=== PATIENT | female | born 2000 | race American Indian/Alaskan Native ===

== ENCOUNTER 2021-01-04 04:20 | Emergency (ER) | payer SELFPAY ==
[2021-01-04 05:51] VITALS: BP 134/86
--- NOTE | 2021-01-04 07:35 | Emergency Department Report ---
ED ENT HPI - General Chief complaint: Sore Throat Stated complaint: SORE THROAT Time Seen by Provider: 01/04/21 07:13 Source: patient Mode of arrival: Ambulatory Limitations: No Limitations - History of Present Illness Initial comments: 20-year-old female with a past medical history of asthma presents to the ER today with complaints of sore throat. Patient states that her symptoms started this morning around 1 AM. She reports pain with swallowing. She also reports mild rhinorrhea nasal congestion and body aches. She denies any coughing, wheezing or shortness of breath. She denies any apparent fever or chills. She denies any apparent ill contacts. She denies any drooling or trismus. She has not gotten a COVID-19 vaccine. complaint: sore throat -: Sudden, This morning (1 am ) - Related Data Previous Rx's Medication Instructions Recorded Last Taken Type Clindamycin [Clindamycin CAP] 300 mg PO Q8H #30 cap 01/04/21 Unknown Rx Ibuprofen [Motrin] 600 mg PO Q8H PRN #20 tablet 01/04/21 Unknown Rx predniSONE [Deltasone] 40 mg PO QDAY #10 tab 01/04/21 Unknown Rx Allergies Allergy/AdvReac Type Severity Reaction Status Date / Time cephalexin [From Keflex] Allergy Rash Verified 01/04/21 05:46 mushroom Allergy Swelling Verified 01/04/21 05:46 ED Dental HPI - General Chief complaint: Sore Throat Stated complaint: SORE THROAT Time Seen by Provider: 01/04/21 07:13 Source: patient Mode of arrival: Ambulatory Limitations: No Limitations - Related Data Previous Rx's Medication Instructions Recorded Last Taken Type Clindamycin [Clindamycin CAP] 300 mg PO Q8H #30 cap 01/04/21 Unknown Rx Ibuprofen [Motrin] 600 mg PO Q8H PRN #20 tablet 01/04/21 Unknown Rx predniSONE [Deltasone] 40 mg PO QDAY #10 tab 01/04/21 Unknown Rx Allergies Allergy/AdvReac Type Severity Reaction Status Date / Time cephalexin [From Keflex] Allergy Rash Verified 01/04/21 05:46 mushroom Allergy Swelling Verified 01/04/21 05:46 ED Review of Systems ROS: Stated complaint: SORE THROAT Other details as noted in HPI Comment: All other systems reviewed and negative Constitutional: denies: chills, fever Eyes: denies: eye pain, eye discharge, vision change ENT: throat pain, congestion, other (Rhinorrhea) Respiratory: denies: cough, shortness of breath, SOB with exertion, SOB at rest, wheezing Cardiovascular: denies: chest pain, palpitations, dyspnea on exertion, orthopnea, edema, syncope, paroxysmal nocturnal dyspnea Gastrointestinal: denies: abdominal pain, nausea, vomiting, diarrhea, constipation, hematemesis, melena, hematochezia Genitourinary: denies: urgency, dysuria, frequency, hematuria, discharge, abnormal menses, dyspareunia Musculoskeletal: myalgia. denies: back pain, joint swelling, arthralgia Skin: denies: rash, lesions, change in color, change in hair/nails, pruritus Neurological: denies: headache, weakness, numbness, paresthesias, confusion Psychiatric: denies: anxiety, depression, auditory hallucinations, visual hallucinations, homicidal thoughts, suicidal thoughts ED Past Medical Hx - Social History Smoking Status: Never Smoker Substance Use Type: None - Medications Home Medications: Home Medications Medication Instructions Recorded Confirmed Last Taken Type Clindamycin [Clindamycin CAP] 300 mg PO Q8H #30 cap 01/04/21 Unknown Rx Ibuprofen [Motrin] 600 mg PO Q8H PRN #20 tablet 01/04/21 Unknown Rx predniSONE [Deltasone] 40 mg PO QDAY #10 tab 01/04/21 Unknown Rx ED Physical Exam - General Limitations: No Limitations General appearance: alert, in no apparent distress - Head Head exam: Present: atraumatic, normocephalic, normal inspection - Eye Eye exam: Present: normal appearance, PERRL, EOMI Pupils: Present: normal accommodation - ENT ENT exam: Present: mucous membranes moist - Expanded ENT Exam Expanded Mouth exam: Present: normal external inspection. Absent: drooling, trismus, muffled voice, tongue normal, tongue elevation Throat exam: Positive: normal inspection, tonsillar erythema, tonsillomegaly, tonsillar exudate. Negative: R peritonsillar mass, L peritonsillar mass - Neck Neck exam: Present: normal inspection, full ROM, lymphadenopathy. Absent: meningismus - Respiratory Respiratory exam: Present: normal lung sounds bilaterally. Absent: respiratory distress, rales, rhonchi - Cardiovascular Cardiovascular Exam: Present: regular rate, normal rhythm, normal heart sounds - Neurological Exam Neurological exam: Present: alert, oriented X3, CN II-XII intact, normal gait - Psychiatric Psychiatric exam: Present: normal affect, normal mood - Skin Skin exam: Present: intact ED Course Vital Signs 01/04/21 01/04/21 05:46 05:49 Temperature 99.2 F 99.2 F Pulse Rate 103 H Respiratory 18 Rate Blood Pressure 134/86 [Right] O2 Sat by Pulse 99 Oximetry ED Medical Decision Making - Medical Decision Making Rapid strep is positive. The patient is resting comfortably and is well- appearing and in no acute distress. There is no respiratory distress, no stridor and the mental status is normal. The neurological exam is normal, there is no significant signs of dehydration, and the patient is able to tolerate p.o. fluids. The history, exam, diagnostic testing and the patient current condition does not suggest an infectious process such as meningitis, retropharyngeal abscess, epiglottitis, peritonsillar abscess, Julisa's angina, severe meningitis, , sepsis or any significant pathology warranting further testing, continued ED treatment, admission, consultation or any other evaluation at this time. Discussed rapid strep results, and treatment plan with patient the vital signs have been stable. The patient condition is stable and appropriate for discharge. Critical care attestation.: If time is entered above; I have spent that time in minutes in the direct care of this critically ill patient, excluding procedure time. ED Disposition Clinical Impression: Strep pharyngitis Disposition: 01 HOME / SELF CARE / HOMELESS Is pt being admited?: No Does the pt Need Aspirin: No Condition: Stable Instructions: Strep Throat, Adult Additional Instructions: I recommend that you take the prednisone, and clindamycin as prescribed for your strep throat. You can gargle 2-3 times a day with warm salt water to help with swelling or you can use [id number] throat lozenges to also help with pain. You can also take Tylenol and/or ibuprofen to help with pain. Follow-up closely with your primary care doctor. Return to the ER if your symptoms changes or worsens in any way. Prescriptions: Clindamycin [Clindamycin CAP] 300 mg PO Q8H #30 cap predniSONE [Deltasone] 40 mg PO QDAY #10 tab Ibuprofen [Motrin] 600 mg PO Q8H PRN #20 tablet PRN Reason: Pain Referrals: CARMEL TYSON MD [Staff Physician] - 3-5 Days Forms: Work/School Release Form(ED) Time of Disposition: 08:11
== END 2021-01-04 08:19 | disposition home or self-care (01) ==
LOC: ED 04:20
DX: J02.0 Streptococcal pharyngitis (principal); B95.0 Streptococcus, group A, as the cause of diseases classified elsewhere; Z88.1 Allergy status to other antibiotic agents; Z91.018 Allergy to other foods; Z79.899 Other long term (current) drug therapy
CPT/HCPCS: 87430; 99283

== ENCOUNTER 2021-08-16 20:34 | Emergency (ER) | payer MEDICAID ==
[2021-08-16 22:33] VITALS: BP 104/64
== END 2021-08-17 02:25 | disposition left against medical advice (07) ==
LOC: ED 20:34
DX: J02.9 Acute pharyngitis, unspecified (principal); Z53.21 Procedure and treatment not carried out due to patient leaving prior to being seen by health care provider

== ENCOUNTER 2021-08-30 09:20 | Inpatient (IN) | payer MEDICAID ==
[2021-08-30] MEDS ORDERED: LACTATED RINGERS 1,000 ML IV SCH (10:30)
[2021-08-30 10:51] LABS: Bilirubin,Urine NEG (Negative); Blood,Urine NEG (Negative); Color,Urine Yellow (Yellow); Hyaline Casts,Urine 1 /LPF; Mucus,Urine 2+ /HPF
[2021-08-30] MEDS ORDERED: LACTATED RINGERS 500 ML IV ONE (11:00)
[2021-08-30] MEDS ORDERED: ACETAMINOPHEN 500 MG TAB PO PRN (11:28)
[2021-08-30] MEDS ORDERED: LACTATED RINGERS 500 ML IV SCH (11:30)
[2021-08-30] MEDS ORDERED: NalbUPHINE 10 MG/1 ML INJ IV PRN (11:30)
[2021-08-30] MEDS ORDERED: ePHEDrine SULFATE 50 MG/1 ML INJ IV PRN (11:30)
[2021-08-30] MEDS ORDERED: fentaNYL 100 MCG/2 ML INJ IV PRN (11:30)
[2021-08-30] MEDS ORDERED: DOCUSATE SODIUM 100 MG CAP PO PRN ×2 (13:06→13:16)
[2021-08-30] MEDS ORDERED: SIMETHICONE 80 MG CHEW TAB PO PRN (13:07)
[2021-08-30] MEDS ORDERED: ALUM-MAG HYDROXIDE-SIMETHICONE 200-200-20MG/5ML ORAL LIQD 30 ML PO PRN (13:07)
[2021-08-30] MEDS ORDERED: SODIUM CHLORIDE NASAL SPRAY 44ML NS PRN (13:07)
[2021-08-30] MEDS ORDERED: ONDANSETRON 4 MG/2 ML INJ IV PRN (13:07)
[2021-08-30] MEDS ORDERED: WITCH HAZEL/ GLYCERIN PAD TP PRN (13:07)
[2021-08-30] MEDS ORDERED: ACETAMINOPHEN 325 MG TAB PO PRN (13:16)
--- NOTE | 2021-08-30 13:20 | History and Physical Report ---
History of Present Illness Date of examination: 08/30/21 Date of admission: 08/30/21 Chief complaint: "fever, temperature at home was 102" History of present illness: EDC Confirmation: 12/09/2021 Past History : 2 Term Births: 0 Premature Births: 0 Living Children: 0 Para: 0 Mult. Births: 0 Prev : 0 Aborta: 1 Elect. Ab: 0 Spont. Ab: 1 Ectopics: 0 # 1 Delivery date: 2016 Weeks Gestation: 2 weeks? Delivery type: SAB Comments: D&C, no complications Past Medical History: Reviewed and updated today: Asthma Bronchitis Past Surgical History: Reviewed and updated today: D&C: 2016 Family History Summary: First Degree Blood Relative - Has No Known Family History - Entered On: 06/16/2021 Social History: Patient is single Smoking History: Patient has never smoked. Risk Factors: Smoked Tobacco Use: Never smoker Smokeless Tobacco Use: Never Passive Smoke Exposure: no HIV High Risk Behavior: no Caffeine Use: 0 drinks per day Exercise: yes Times/wk: 3 Type of Exercise: Walking Exercise Counseling: yes Seatbelt Use: preg-clinical mental health counselor % Sun Exposure: rarely Family History Risk Factors: Family History of DC in 1 Female Relative Age < 65: no Family History of DC in 1 Male Relative Age < 55: no No Dietary Counseling Reason: pn yes Alcohol Use: yes Drug Use: no Past Medical History Anesthesia Complications: negative Anemia: negative Autoimmune Disorder: negative Bleeding Disorder: negative Blood Transfusions: negative Breast Disease: negative Diabetes: negative Heart Disease: negative Hypertension: negative Hepatitis/Liver Disease: negative Kidney Disease/UTI: negative Neurologic/Epilepsy/Migraines: negative Phlebitis/Varicosities: negative Psychiatric: negative Pulmonary Disease/Asthma: negative Thyroid Disease: negative Hospitalizations: negative Surgery (Non-manager produce): D&C: 2016 Abnormal PAP: negative MYRTLE Exposure: negative Infertility: negative Uterine Anomaly: negative Uterine Surgery (not C/S): negative Other Gynecologic Problems: negative Social Hx: Patient is single Smoking History: Patient has never smoked. Infection History Hx of STD: none HIV Risk Eval: no Hepatitis B Risk Eval: low risk Personal hx. of genital herpes: no Partner hx. of genital herpes: no Rash, Viral, or Febrile illness since last LMP? no Varicella/Chicken Pox Status: Unknown TB Risk: no Genetic History Congenital Heart Defect: Mom: no Dad: no Elpidio Disease: Mom: no Dad: no Thalassemia Mom: no Dad: no Neural Tube Defect Mom: no Dad: no Down's Syndrome Mom: no Dad: no [place]s Mom: no Dad: no Sickle Cell Disease/Trait Mom: no Dad: no Hemophilia Mom: no Dad: no Muscular Dystrophy Mom: no Dad: no Cystic Fibrosis Mom: no Dad: no [place] Chorea Mom: no Dad: no Mental Retardation Mom: no Dad: no Fragile X Mom: no Dad: no Other Genetic/Chromosomal Disorder Mom: no Dad: no Child w/other defect Mom: no Dad: no Enviromental Exposures Xray Exposure: no Medication, drug, or alcohol use since LMP: no Chemical/Other Exposure: no Exposure to Cat Liter: no Hx of Parvovirus (Fifth Disease): no Occupational Exposure to Children: none Active Medications (reviewed today): None Current Allergies (reviewed today): CEPHALEXIN (CEPHALEXIN TABS) (Critical) Past History Past Medical History: asthma, other (see HPI) Past Surgical History: D&C, other (see HPI) INSPECTOR EXHAUST EMISSIONS History: other (see HPI) Family/Genetic History: none, other (see HPI) Social history: no significant social history, other (see HPI) - Obstetrical History Expected Date of Delivery: 12/09/21 Actual Gestation: 25 Week(s) 4 Day(s) : 2 Para: 0 Hx # Term Pregnancies: 0 Number of Pregnancies: 0 Spontaneous Abortions: 1 Induced : 0 Number of Living Children: 0 Medications and Allergies Allergies Allergy/AdvReac Type Severity Reaction Status Date / Time cephalexin [From Keflex] Allergy Rash Verified 01/04/21 05:46 mushroom Allergy Swelling Verified 01/04/21 05:46 Home Medications Medication Instructions Recorded Confirmed Last Taken Type Clindamycin [Clindamycin CAP] 300 mg PO Q8H #30 cap 01/04/21 Unknown Rx Ibuprofen [Motrin] 600 mg PO Q8H PRN #20 tablet 01/04/21 Unknown Rx predniSONE [Deltasone] 40 mg PO QDAY #10 tab 01/04/21 Unknown Rx Active Meds: Active Medications Acetaminophen (Acetaminophen 500 Mg Tab) 1,000 mg PO Q6H PRN PRN Reason: Fever >101 Last Admin: 08/30/21 12:10 Dose: 1,000 mg Lactated Ringer's (Lactated Ringers) 1,000 mls @ 125 mls/hr IV DIRECT JOANNE Review of Systems All systems: negative Constitutional: fever Ears, nose, mouth and throat: nasal congestion, nasal discharge (clear nasal discharge), sore throat Respiratory: cough Gastrointestinal: nausea, vomiting - Vital Signs Vital signs: Vital Signs Pulse Pulse Ox 131 H 96 08/30/21 09:55 08/30/21 09:55 Temp Pulse Resp BP Pulse Ox 103.3 F H 119 H 20 117/86 94 08/30/21 10:04 08/30/21 13:04 08/30/21 12:10 08/30/21 12:43 08/30/21 13:04 - Physical Exam Lungs: Positive: Normal air movement Abdomen: Positive: normal appearance, soft. Negative: distention, tenderness, guarding Uterus: Positive: normal size, normal contour, other (gravid) Extremities: Positive: normal - Obstetrical FHR: category 2 Uterine Contraction Monitor Mode: External Uterine Contraction Pattern: Absent Uterine Tone Measurement Phase: Resting Results Abnormal lab results 08/30/21 Range/Units 10:08 U Epithel Cells (Auto) 16.0 H (0-13.0) /HPF All other labs normal. Tests: (1) Profile I ([id number]) Order Note: Clinical Information: SRC:UR HBsAg Screen Negative Negative *1 RPR Non Reactive Non Reactive *2 Rubella Antibodies, IgG 1.08 index Immune >0.99 *3 Non-immune <0.90 Equivocal 0.90 - 0.99 Immune >0.99 ABO Grouping A *4 Rh Factor Positive *5 Please note: Prior records for this patient's ABO / Rh type are not available for additional verification. Antibody Screen Negative Negative *6 WBC 10.8 x10E3/uL 3.4-10.8 *7 RBC 4.25 x10E6/uL 3.77-5.28 *8 Hemoglobin 11.3 g/dL 11.1-15.9 *9 Hematocrit 35.9 % 34.0-46.6 *10 MCV 85 fL 79-97 *11 MCH 26.6 pg 26.6-33.0 *12 MCHC 31.5 g/dL 31.5-35.7 *13 RDW 13.8 % 11.7-15.4 *14 Platelets 363 x10E3/uL 150-450 *15 Neutrophils 78 % Not Estab. *16 Lymphs 13 % Not Estab. *17 Monocytes 6 % Not Estab. *18 Eos 2 % Not Estab. *19 Basos 0 % Not Estab. *20 ! Immature Cells <No Reported Value> *21 Neutrophils (Absolute) [H] 8.4 x10E3/uL 1.4-7.0 *22 Lymphs (Absolute) 1.4 x10E3/uL 0.7-3.1 *23 Monocytes(Absolute) 0.7 x10E3/uL 0.1-0.9 *24 Eos (Absolute) 0.3 x10E3/uL 0.0-0.4 *25 Baso (Absolute) 0.0 x10E3/uL 0.0-0.2 *26 ! Immature Granulocytes 1 % Not Estab. *27 ! Immature Grans (Abs) 0.1 x10E3/uL 0.0-0.1 *28 ! NRBC <No Reported Value> *29 Hematology Comments: <No Reported Value> *30 Tests: (2) AFP Tetra ([id number]) ! Results Report *31 ! Test Results: *Screen Negative* *32 ! Gest. Age on Collection Date 15.6 WEEKS *33 ! Gestat. Age Based On Ultrasound *34 15.6 on 06/28/2021 ! M[age]UE [age] *35 ! Race Black *36 ! Weight 196 lbs *37 ! Insulin Dep Diabetes No *38 ! Multiple Gestation No *39 ! AFP Value 31.5 ng/mL *40 ! AFP MoM 1.06 *41 ! hCG Value 83463 mIU/mL *42 ! hCG MoM 1.20 *43 ! uE3 Value 0.89 ng/mL *44 ! uE3 MoM 1.10 *45 ! LULU Value 94.39 pg/mL *46 ! LULU MoM 0.67 *47 ! OSBR [place] 1 [place] [address] *48 ! DSR (Second Trimester) 1 [place] [address] *49 ! DSR (By Age) 1 IN 1155 *50 ! T18 Risk Not increased *51 ! T18 (By Age) 1:4499 *52 ! Interpretation NL42 *53 Interpretation: Screen Negative This result is screen negative for OSB, Down Syndrome and Trisomy 18. The AFP MoM and patient specific risks calculated are based on the gestational age and the clinical information provided. This test can identify up to 80% of open neural tube defects. Closed neural tube defects and some open defects may not be detected by this test. The combination of maternal age, AFP, hCG, uE3, and LULU identifies 75-80% of Down Syndrome. The combination of maternal age, AFP, hCG and uE3 identifies 60% of Trisomy 18 pregnancies. The [employer] recommends amniocentesis be offered to women age 35 and older. Recalculations are not recommended when gestational dating by LMP and ultrasound are within 10 days. ! Comments: [facility] *54 Naomie Guerra, Ph.D., [facility] Director References: Available Upon Request. Multiples Of Median Cutoffs Abbreviation Definitions For AFP Elevations IDD- Insulin Dep Diabetes Morrell 2.5 Black 2.8 OSBR- Open Spina Bifida IDD 2.0 Twins 4.5 Risk DSR Cutoff 1:270 DSR- Down Syndrome Risk T18 Cutoff 1:100 T18- Trisomy 18 Down Syndrome and Trisomy 18 screening are considered Investigational For further inquiries contact [employer] at [phone]. Tests: (3) HB Solu + Rflx Fra ([id number]) Hemoglobin (Hgb) Solubility Negative Negative *55 Tests: (4) Toxoplasma gondii Ab, IgG ([id number]) ! Toxoplasma gondii Ab,IgG <3.0 IU/mL 0.0-7.1 *56 Negative <7.2 Equivocal 7.2 - 8.7 Positive >8.7 Tests: (5) HIV Ab/p24 Ag with Reflex ([id number]) HIV Ab/p24 Ag Screen Non Reactive Non Reactive *57 HIV Negative HIV-1/HIV-2 antibodies and HIV-1 p24 antigen were NOT detected. There is no laboratory evidence of HIV infection. Tests: (6) Varicella-Zoster V Ab, IgG ([id number]) ! Varicella Zoster IgG [L] <135 index Immune >165 *58 Negative <135 Equivocal 135 - 165 Positive >165 A positive result generally indicates exposure to the pathogen or administration of specific immunoglobulins, but it is not indication of active infection or stage of disease. Tests: (7) HCV Antibody reflex to NICKY ([id number]) HCV Ab <0.1 s/co ratio 0.0-0.9 *59 Assessment and Plan @25.4wks presents to triage with c/o fever, vomiting, cough, sore throat, runny nose, and body aches. VS reviewed and pt febrile and tachycardic. FHT's with tachycardia noted. Continuous monitoring, blood cultures, CBC, CMP, IV fluid bolus, and Tylenol orders given. Dr. Javier made aware and orders received for admission. Pt reports symptoms began yesterday. [place] suspicious of exposure to flu. Pt states, "my best friend has it right now". Pt denies known exposure to illness. Pt reports positive movement. Denies contractions, LOF, and VB. Phone call to RN received from lab at time of exam and notified COVID test result negative. Isolation precautions advised for fever of unknown origin. Admission POC d/w pt. Questions encouraged and answered. Pt verbalizes understanding and agrees to POC. Pt reports severe allergy to Keflex. Dr. Javier made aware. No orders for antibiotics received at this time. - Patient Problems (1) 25 weeks gestation of Current Visit: Yes Status: Acute Plan to address problem: continuous efm and toco monitoring (2) Fever in adult Current Visit: Yes Status: Acute Plan to address problem: blood cultures and urine culture ordered CBC and CMP ordered ID consult ordered covid test negative 08/30/21 flu test ordered
[2021-08-30 13:40] LABS: Basophils % (Auto) 0.2 % (0.0-1.8); Eosinophils % (Auto) 0.1 % (0.0-4.3); Hematocrit 31.4 % (30.3-42.9); Hemoglobin 10.3 gm/dl (10.1-14.3); Lymphocytes # (Auto) 0.3 K/mm3 (1.2-5.4); Lymphocytes % (Auto) 3.7 % (13.4-35.0); Mean Corpuscular HGB Conc 33 % (30-34); Mean Corpuscular Volume 83 fl (79-97); Monocytes # (Auto) 0.9 K/mm3 (0.0-0.8); Monocytes % (Auto) 10.8 % (0.0-7.3); Platelet Count 275 K/mm3 (140-440); Red Blood Count 3.79 M/mm3 (3.65-5.03); Red Cell Distribution Width 13.7 % (13.2-15.2)
[2021-08-30] MEDS: guaiFENesin DM 200/20 MG ORAL LIQD 10 ML PO PRN ×2 (15:51→23:08)
[2021-08-30] MEDS: PSEUDOEPHEDRINE 30 MG TAB PO PRN (15:51)
[2021-08-30] MEDS: OSELTAMIVIR 75 MG CAP PO SCH ×2 (15:52→22:18)
[2021-08-30 16:18] LABS: Alanine Aminotransferase 14 units/L (7-56); Albumin 3.8 g/dL (3.9-5); Blood Urea Nitrogen 8 mg/dL (7-17); Calcium 8.8 mg/dL (8.4-10.2); Hemolysis Index 3
[2021-08-30 16:19] LABS: BUN/Creatinine Ratio 13
[2021-08-30] MEDS: LACTATED RINGERS 1,000 ML IV SCH (23:11)
[2021-08-31] MEDS: LACTATED RINGERS 1,000 ML IV SCH ×2 (07:53→23:05)
--- NOTE | 2021-08-31 08:16 | Progress Note ---
Assessment and Plan patient reports feeling better today; c/o nonproductive cough, denies ctx, leaking or vag bleeding. pt reports active FM. Tmax 103.1 08/31 @ 1300 P: FHT q8hrs if temp <100.4 CXR continue tamiflu BC x 2 and UC in progress ISS ID consult ordered - Patient Problems (1) Flu Current Visit: Yes Status: Acute (2) 25 weeks gestation of Current Visit: Yes Status: Acute Subjective - Subjective Date of service: 08/31/21 Principal diagnosis: IUP @ 25wks; flu Patient reports: movement normal, other (dry cough), no new complaints, no loss of fluid, no vaginal bleeding, no contractions Objective - Vital Signs Vital Signs: Vital Signs - 12hr 08/30/21 08/30/21 08/30/21 20:13 20:18 20:23 Temperature Pulse Rate 96 H 93 H 100 H Respiratory Rate Blood Pressure O2 Sat by Pulse 96 98 96 Oximetry 08/30/21 08/30/21 08/30/21 20:28 20:32 20:33 Temperature Pulse Rate 101 H 105 H 99 H Respiratory Rate Blood Pressure O2 Sat by Pulse 96 94 94 Oximetry 08/30/21 08/30/21 08/30/21 20:38 20:40 20:43 Temperature Pulse Rate 95 H 89 101 H Respiratory Rate Blood Pressure O2 Sat by Pulse 94 94 92 Oximetry 08/30/21 08/30/21 08/30/21 20:48 20:53 20:55 Temperature Pulse Rate 95 H 100 H 113 H Respiratory Rate Blood Pressure O2 Sat by Pulse 94 93 94 Oximetry 08/30/21 08/30/21 08/30/21 20:58 21:00 21:03 Temperature Pulse Rate 105 H 106 H 93 H Respiratory Rate Blood Pressure 112/59 O2 Sat by Pulse 94 93 96 Oximetry 08/30/21 08/30/21 08/30/21 21:08 21:13 21:14 Temperature Pulse Rate 105 H 100 H 101 H Respiratory Rate Blood Pressure O2 Sat by Pulse 94 95 94 Oximetry 08/30/21 08/30/21 08/30/21 21:18 21:23 21:28 Temperature Pulse Rate 101 H 111 H 99 H Respiratory Rate Blood Pressure O2 Sat by Pulse 96 96 95 Oximetry 08/30/21 08/30/21 08/30/21 21:30 21:33 21:36 Temperature Pulse Rate 109 H 104 H 96 H Respiratory Rate Blood Pressure O2 Sat by Pulse 94 95 94 Oximetry 08/30/21 08/30/21 08/30/21 21:38 21:43 21:48 Temperature Pulse Rate 102 H 99 H 98 H Respiratory Rate Blood Pressure O2 Sat by Pulse 94 94 96 Oximetry 08/30/21 08/30/21 08/30/21 21:53 21:56 21:58 Temperature Pulse Rate 102 H 102 H 101 H Respiratory Rate Blood Pressure O2 Sat by Pulse 95 94 95 Oximetry 08/30/21 08/30/21 08/30/21 22:03 22:08 22:09 Temperature Pulse Rate 100 H 99 H 101 H Respiratory Rate Blood Pressure O2 Sat by Pulse 95 95 94 Oximetry 08/30/21 08/30/21 08/30/21 22:19 22:20 22:24 Temperature Pulse Rate 105 H 102 H 104 H Respiratory Rate Blood Pressure 133/59 O2 Sat by Pulse 99 96 Oximetry 08/30/21 08/30/21 08/30/21 22:29 22:34 22:39 Temperature Pulse Rate 107 H 107 H 104 H Respiratory Rate Blood Pressure O2 Sat by Pulse 98 97 97 Oximetry 08/30/21 08/30/21 08/30/21 22:44 22:49 22:54 Temperature Pulse Rate 96 H 100 H 103 H Respiratory Rate Blood Pressure O2 Sat by Pulse 97 98 97 Oximetry 08/30/21 08/30/21 08/30/21 22:59 23:04 23:09 Temperature Pulse Rate 102 H 108 H 109 H Respiratory Rate Blood Pressure O2 Sat by Pulse 97 95 99 Oximetry 08/30/21 08/30/21 08/30/21 23:10 23:14 23:19 Temperature 99.1 F Pulse Rate 103 H 122 H Respiratory 20 Rate Blood Pressure O2 Sat by Pulse 99 99 97 Oximetry 08/30/21 08/30/21 08/30/21 23:24 23:29 23:34 Temperature Pulse Rate 113 H 110 H 109 H Respiratory Rate Blood Pressure O2 Sat by Pulse 96 95 92 Oximetry 08/30/21 08/30/21 08/30/21 23:39 23:42 23:44 Temperature Pulse Rate 108 H 103 H 110 H Respiratory Rate Blood Pressure O2 Sat by Pulse 93 94 95 Oximetry 0508/30/21 08/30/21 23:47 23:49 23:54 Temperature Pulse Rate 105 H 109 H 106 H Respiratory Rate Blood Pressure O2 Sat by Pulse 94 94 95 Oximetry 08/30/21 08/30/21 08/31/21 23:55 23:59 00:00 Temperature Pulse Rate 109 H 111 H 110 H Respiratory Rate Blood Pressure O2 Sat by Pulse 94 94 94 Oximetry 08/31/21 08/31/21 08/31/21 00:04 00:06 00:08 Temperature Pulse Rate 109 H 111 H 108 H Respiratory Rate Blood Pressure 105/53 O2 Sat by Pulse 96 93 Oximetry 08/31/21 08/31/21 08/31/21 00:09 00:14 00:19 Temperature Pulse Rate 101 H 115 H 103 H Respiratory Rate Blood Pressure O2 Sat by Pulse 94 96 95 Oximetry 08/31/21 08/31/21 08/31/21 00:21 00:24 00:27 Temperature Pulse Rate 106 H 108 H 108 H Respiratory Rate Blood Pressure O2 Sat by Pulse 94 96 94 Oximetry 08/31/21 08/31/21 08/31/21 00:29 00:34 00:39 Temperature Pulse Rate 107 H 106 H 110 H Respiratory Rate Blood Pressure O2 Sat by Pulse 96 96 97 Oximetry 08/31/21 08/31/21 08/31/21 00:44 00:49 00:52 Temperature Pulse Rate 103 H 106 H 109 H Respiratory Rate Blood Pressure O2 Sat by Pulse 95 96 93 Oximetry 08/31/21 08/31/21 08/31/21 00:54 00:59 01:04 Temperature Pulse Rate 110 H 112 H 98 H Respiratory Rate Blood Pressure O2 Sat by Pulse 96 94 97 Oximetry 08/31/21 08/31/21 08/31/21 01:06 01:09 01:10 Temperature Pulse Rate 107 H 104 H 109 H Respiratory Rate Blood Pressure 129/70 O2 Sat by Pulse 95 94 Oximetry 08/31/21 08/31/21 08/31/21 01:14 01:17 01:19 Temperature Pulse Rate 111 H 111 H 113 H Respiratory Rate Blood Pressure O2 Sat by Pulse 94 94 97 Oximetry 08/31/21 08/31/21 08/31/21 01:24 01:25 01:29 Temperature Pulse Rate 119 H 117 H 120 H Respiratory Rate Blood Pressure O2 Sat by Pulse 95 94 97 Oximetry 08/31/21 08/31/21 08/31/21 01:30 01:34 01:39 Temperature 98.3 F Pulse Rate 120 H 122 H Respiratory 20 Rate Blood Pressure O2 Sat by Pulse 97 94 96 Oximetry 08/31/21 08/31/21 08/31/21 01:44 01:46 01:49 Temperature Pulse Rate 105 H 108 H 110 H Respiratory Rate Blood Pressure O2 Sat by Pulse 94 94 94 Oximetry 08/31/21 08/31/21 08/31/21 01:51 01:54 01:59 Temperature Pulse Rate 109 H 106 H 106 H Respiratory Rate Blood Pressure O2 Sat by Pulse 94 94 96 Oximetry 08/31/21 08/31/21 08/31/21 02:04 02:09 02:12 Temperature Pulse Rate 105 H 111 H 104 H Respiratory Rate Blood Pressure O2 Sat by Pulse 95 96 94 Oximetry 08/31/21 08/31/21 08/31/21 02:14 02:17 02:19 Temperature Pulse Rate 105 H 105 H 103 H Respiratory Rate Blood Pressure O2 Sat by Pulse 95 94 94 Oximetry 08/31/21 08/31/21 08/31/21 02:24 02:25 02:29 Temperature Pulse Rate 108 H 102 H 106 H Respiratory Rate Blood Pressure O2 Sat by Pulse 95 94 95 Oximetry 08/31/21 08/31/21 08/31/21 02:33 02:34 02:49 Temperature Pulse Rate 117 H 113 H 109 H Respiratory Rate Blood Pressure O2 Sat by Pulse 94 98 97 Oximetry 08/31/21 08/31/21 08/31/21 02:54 02:55 02:59 Temperature Pulse Rate 114 H 107 H 118 H Respiratory Rate Blood Pressure O2 Sat by Pulse 96 94 95 Oximetry 08/31/21 08/31/21 08/31/21 03:00 03:04 03:05 Temperature Pulse Rate 111 H 112 H 101 H Respiratory Rate Blood Pressure 114/63 O2 Sat by Pulse 94 97 Oximetry 08/31/21 08/31/21 08/31/21 03:09 03:14 03:19 Temperature Pulse Rate 101 H 98 H 101 H Respiratory Rate Blood Pressure O2 Sat by Pulse 96 97 97 Oximetry 08/31/21 08/31/21 08/31/21 03:24 03:29 03:30 Temperature Pulse Rate 98 H 102 H 103 H Respiratory Rate Blood Pressure O2 Sat by Pulse 97 94 94 Oximetry 08/31/21 08/31/21 08/31/21 03:34 03:39 03:44 Temperature Pulse Rate 106 H 105 H 101 H Respiratory Rate Blood Pressure O2 Sat by Pulse 96 95 95 Oximetry 08/31/21 08/31/21 08/31/21 03:49 03:54 03:55 Temperature Pulse Rate 95 H 104 H 121 H Respiratory Rate Blood Pressure O2 Sat by Pulse 94 96 94 Oximetry 08/31/21 08/31/21 08/31/21 03:59 04:02 04:04 Temperature Pulse Rate 96 H 100 H 100 H Respiratory Rate Blood Pressure O2 Sat by Pulse 96 94 95 Oximetry 08/31/21 08/31/21 08/31/21 04:07 04:09 04:12 Temperature Pulse Rate 99 H 104 H 99 H Respiratory Rate Blood Pressure 102/58 O2 Sat by Pulse 94 94 Oximetry 08/31/21 08/31/21 08/31/21 04:14 04:19 04:20 Temperature Pulse Rate 104 H 104 H 101 H Respiratory Rate Blood Pressure O2 Sat by Pulse 94 95 94 Oximetry 08/31/21 08/31/21 08/31/21 04:24 04:29 04:34 Temperature Pulse Rate 101 H 105 H 101 H Respiratory Rate Blood Pressure O2 Sat by Pulse 96 96 94 Oximetry 08/31/21 08/31/21 08/31/21 04:39 04:40 04:44 Temperature 98.9 F Pulse Rate 111 H 100 H Respiratory 20 Rate Blood Pressure O2 Sat by Pulse 96 96 93 Oximetry 08/31/21 08/31/21 08/31/21 04:47 04:49 04:54 Temperature Pulse Rate 104 H 104 H 99 H Respiratory Rate Blood Pressure O2 Sat by Pulse 94 93 96 Oximetry 08/31/21 08/31/21 08/31/21 04:55 04:59 05:04 Temperature Pulse Rate 101 H 103 H 101 H Respiratory Rate Blood Pressure O2 Sat by Pulse 94 95 95 Oximetry 08/31/21 08/31/21 08/31/21 05:05 05:09 05:11 Temperature Pulse Rate 102 H 103 H 99 H Respiratory Rate Blood Pressure 92/51 O2 Sat by Pulse 94 96 94 Oximetry 08/31/21 08/31/21 08/31/21 05:14 05:16 05:19 Temperature Pulse Rate 101 H 101 H 105 H Respiratory Rate Blood Pressure O2 Sat by Pulse 95 94 95 Oximetry 08/31/21 08/31/21 08/31/21 05:21 05:24 05:27 Temperature Pulse Rate 99 H 96 H 95 H Respiratory Rate Blood Pressure O2 Sat by Pulse 93 90 90 Oximetry 08/31/21 08/31/21 08/31/21 05:29 05:34 05:39 Temperature Pulse Rate 101 H 100 H 100 H Respiratory Rate Blood Pressure O2 Sat by Pulse 89 92 91 Oximetry 08/31/21 08/31/21 08/31/21 05:44 05:49 05:54 Temperature Pulse Rate 103 H 99 H 99 H Respiratory Rate Blood Pressure O2 Sat by Pulse 92 93 92 Oximetry 08/31/21 08/31/21 08/31/21 05:59 06:04 06:07 Temperature Pulse Rate 113 H 107 H 115 H Respiratory Rate Blood Pressure 96/53 O2 Sat by Pulse 96 92 Oximetry 08/31/21 08/31/21 08/31/21 06:09 06:14 06:17 Temperature Pulse Rate 106 H 104 H 116 H Respiratory Rate Blood Pressure O2 Sat by Pulse 93 92 91 Oximetry 08/31/21 08/31/21 08/31/21 06:19 06:23 06:24 Temperature Pulse Rate 111 H 118 H 114 H Respiratory Rate Blood Pressure O2 Sat by Pulse 98 94 97 Oximetry 08/31/21 08/31/21 08/31/21 06:29 06:40 06:43 Temperature Pulse Rate 118 H 115 H 106 H Respiratory Rate Blood Pressure O2 Sat by Pulse 96 96 94 Oximetry 08/31/21 08/31/21 08/31/21 06:45 06:49 06:50 Temperature Pulse Rate 117 H 107 H 111 H Respiratory Rate Blood Pressure O2 Sat by Pulse 95 94 94 Oximetry 08/31/21 08/31/21 08/31/21 06:54 06:55 07:00 Temperature Pulse Rate 106 H 114 H 107 H Respiratory Rate Blood Pressure O2 Sat by Pulse 94 98 97 Oximetry 08/31/21 08/31/21 08/31/21 07:01 07:05 07:07 Temperature Pulse Rate 110 H 103 H 108 H Respiratory Rate Blood Pressure 101/58 O2 Sat by Pulse 93 95 92 Oximetry 0508/31/21 08/31/21 07:10 07:13 07:15 Temperature Pulse Rate 109 H 108 H 111 H Respiratory Rate Blood Pressure O2 Sat by Pulse 96 94 98 Oximetry 08/31/21 08/31/21 08/31/21 07:20 07:22 07:25 Temperature Pulse Rate 108 H 107 H 109 H Respiratory Rate Blood Pressure 119/65 O2 Sat by Pulse 97 96 Oximetry 08/31/21 08/31/21 08/31/21 07:30 07:35 07:40 Temperature Pulse Rate 110 H 106 H 106 H Respiratory Rate Blood Pressure O2 Sat by Pulse 96 98 98 Oximetry 08/31/21 08/31/21 08/31/21 07:45 07:48 07:50 Temperature 99.8 F H Pulse Rate 103 H 104 H Respiratory Rate Blood Pressure O2 Sat by Pulse 97 96 Oximetry 08/31/21 08/31/21 08/31/21 07:55 08:00 08:05 Temperature Pulse Rate 102 H 102 H 114 H Respiratory Rate Blood Pressure O2 Sat by Pulse 95 95 98 Oximetry 08/31/21 08:07 Temperature Pulse Rate 107 H Respiratory Rate Blood Pressure 94/47 O2 Sat by Pulse Oximetry - Exam Cardiovascular: Regular rate Lungs: Normal air movement Abdomen: Present: normal appearance, soft Uterus: Present: normal FHR: category 1 Uterine Contraction Monitor Mode: External Uterine Contraction Pattern: Absent Uterine Tone Measurement Phase: Resting Extremities: normal - Labs Labs: Abnormal Labs 08/30/21 08/30/21 08/30/21 10:08 12:00 12:00 MCH 27 L Lymph % (Auto) 3.7 L Gibson % (Auto) 10.8 H Lymph # (Auto) 0.3 L Gibson # (Auto) 0.9 H Seg Neutrophils % 85.2 H Sodium 133 L Potassium 3.2 L Carbon Dioxide 21 L Albumin 3.8 L U Epithel Cells (Auto) 16.0 H Influenza A (RT-PCR) 08/30/21 13:40 MCH Lymph % (Auto) Gibson % (Auto) Lymph # (Auto) Gibson # (Auto) Seg Neutrophils % Sodium Potassium Carbon Dioxide Albumin U Epithel Cells (Auto) Influenza A (RT-PCR) Positive A Laboratory Results - last 24 hr 08/30/21 08/30/21 08/30/21 10:08 11:40 12:00 WBC 8.5 RBC 3.79 Hgb 10.3 Hct 31.4 MCV 83 MCH 27 L MCHC 33 RDW 13.7 Plt Count 275 Lymph % (Auto) 3.7 L Gibson % (Auto) 10.8 H Eos % (Auto) 0.1 Baso % (Auto) 0.2 Lymph # (Auto) 0.3 L Gibson # (Auto) 0.9 H Eos # (Auto) 0.0 Baso # (Auto) 0.0 Seg Neutrophils % 85.2 H Seg Neutrophils # 7.3 Sodium Potassium Chloride Carbon Dioxide Anion Gap BUN Creatinine Estimated GFR BUN/Creatinine Ratio Glucose Calcium Total Bilirubin AST ALT Alkaline Phosphatase Total Protein Albumin Albumin/Globulin Ratio Urine Color Yellow Urine Turbidity Slightly-cloudy Urine pH 5.0 Ur Specific [place] 1.024 Urine Protein 100 mg/dl Urine Glucose (UA) Neg Urine Ketones 20 Urine Blood Neg Urine Nitrite Neg Urine Bilirubin Neg Urine Urobilinogen 2.0 Ur Leukocyte Esterase Tr Urine WBC (Auto) 2.0 Urine RBC (Auto) 1.0 U Epithel Cells (Auto) 16.0 H Hyaline Casts 1 Urine Mucus 2+ SARS-CoV-2 (PCR) Negative Influenza A (RT-PCR) Influenza B (RT-PCR) 08/30/21 08/30/21 12:00 13:40 WBC RBC Hgb Hct MCV MCH MCHC RDW Plt Count Lymph % (Auto) Gibson % (Auto) Eos % (Auto) Baso % (Auto) Lymph # (Auto) Gibson # (Auto) Eos # (Auto) Baso # (Auto) Seg Neutrophils % Seg Neutrophils # Sodium 133 L Potassium 3.2 L Chloride 99.1 Carbon Dioxide 21 L Anion Gap 16 BUN 8 Creatinine 0.6 Estimated GFR > 60 BUN/Creatinine Ratio 13 Glucose 77 Calcium 8.8 Total Bilirubin 0.20 AST 20 ALT 14 Alkaline Phosphatase 62 Total Protein 6.3 Albumin 3.8 L Albumin/Globulin Ratio 1.5 Urine Color Urine Turbidity Urine pH Ur Specific [place] Urine Protein Urine Glucose (UA) Urine Ketones Urine Blood Urine Nitrite Urine Bilirubin Urine Urobilinogen Ur Leukocyte Esterase Urine WBC (Auto) Urine RBC (Auto) U Epithel Cells (Auto) Hyaline Casts Urine Mucus SARS-CoV-2 (PCR) Influenza A (RT-PCR) Positive A Influenza B (RT-PCR) Negative
[2021-08-31] MEDS: PSEUDOEPHEDRINE 30 MG TAB PO PRN (09:07)
--- NOTE | 2021-08-31 09:22 | XRay Report ---
CHEST 1 VIEW 08/31/2021 8:28 AM INDICATION / CLINICAL INFORMATION: influenza. COMPARISON: None available. FINDINGS: SUPPORT DEVICES: None. HEART / MEDIASTINUM: No significant abnormality. LUNGS / PLEURA: No significant pulmonary or pleural abnormality. No pneumothorax. ADDITIONAL FINDINGS: No significant additional findings. IMPRESSION: 1. No acute findings. Signer Name: Chavez Horowitz MD Signed: 08/31/2021 9:18 AM Workstation Name: [id number]
[2021-08-31] MEDS ORDERED: PRENATAL VIT27-FE FUMARATE-FOLIC ACID VIT TAB PO SCH (10:00)
[2021-08-31] MEDS: OSELTAMIVIR 75 MG CAP PO SCH ×2 (11:03→21:57)
[2021-08-31] MEDS: guaiFENesin DM 200/20 MG ORAL LIQD 10 ML PO PRN ×2 (14:12→20:03)
[2021-09-01] MEDS: guaiFENesin DM 200/20 MG ORAL LIQD 10 ML PO PRN (03:26)
--- NOTE | 2021-09-01 05:41 | Discharge Summary ---
Providers - Providers Date of Admission: 08/30/21 09:21 Date of discharge: 09/01/21 Attending physician: ADAM CHRISTIAN MD 08/30/21 13:06 Consult to Dietitian/Nutrition [CONS] Routine Physician Instructions: Reason For Exam: Reason for Consult: Poor oral intake 08/30/21 13:07 Consult to Physician [CONS] Routine Comment: Consulting Provider: JUSTUS REGALADO Physician Instructions: Reason For Exam: fever of unknown origin Primary care physician: ADAM CHRISTIAN MD Hospitalization Reason for admission: other (Maternal fever) Discharge diagnosis: other (Undelivered @ 25 + wks) Pertinent studies: Pt states that she feels much better. Her max temperature here @ the hospital was 103. Currently it is 97.7. When her pulse ox is correctly reading she is 97- 100 % on room air and in no distress. The rest of her vital signs are stable. She denies chest pain, shortness of breath, vaginal bleeding, LOF, and ctxs. There is positive movement. Preliminary blood cultures have resulted as no growth in 24 hours. Pt is aware that she will need to call the member of congress provider and go to the nearest ER if the following happen: shortness of breath, chest pain, vaginal bleeding, LOF, ctxs, decreased movement. She is aware that a prescription for Tamiflu (3 more days left to take the medication) was sent to her pharmacy on file at the office. We also discussed that she should keep her scheduled appointment. Hospital course: S: Pt states that she is feeling better. Denies s/sx of labor, chest pain, shortness of breath. O: VSS. Current Temperature 97.7. Adequate I&O's. Pulse Ox 97-100% on room air. A: 21 y.o. 25.6 wks antepartum patient admitted for flu. Now in good condition. P: Discharge home with instructions. Pt to keep next scheduled appointment. Will follow up with patient next week via telephone. Condition at discharge: Good Disposition: 01 HOME / SELF CARE / HOMELESS Plan - Provider Discharge Summary Activity: routine Diet: routine Instructions: routine Additional instructions: [] Smoking cessation referral if applicable(refer to patient education folder for contact #) [] Refer to [facility] Booklet Call your doctor immediately for: * Fever > 100.5 * Heavy vaginal bleeding ( >1 pad per hour) * Severe persistent headache * Shortness of breath * Reddened, hot, painful area to leg or breast - Follow up plan Follow up: ADAM CHRISTIAN MD [Primary Care Provider] - 7 Days (- Please keep your scheduled appointment in the office. - If you have vaginal bleeding, feelings like your water broke, contractions, decreased movement, chest pain, feeling like you can't breath, call the member of congress provder and go to [facility] labor and delivery or nearest ER to be seen. - We will follow up with you in the next week via telephone. - Should you have any questions or concerns after discharge, please do not hesitate to call the office at [phone]. )
[2021-09-01 07:46] VITALS: BP 103/69
--- NOTE | 2021-09-01 12:08 | Electrocardiograph Report ---
[facility] Test Date: 2021-08-30 Test Time: 14:39:51 Pat Name: CRISTI ESPINOZA Department: Room: 2000 04 Gender: F Pit Operator: SHAREE : 2000 Requested By: CARLOS MIDDLETON Order Number: [id number] Reading MD: Watson Matias Measurements Intervals Standard Rate: 113 P: 83 VA: 141 QRS: 81 QRSD: 80 T: -41 QT: 334 QTc: 458 Interpretive Statements Sinus tachycardia Atrial premature complex No previous ECG available for comparison Electronically Signed On 09-01-2021 12:07:48 EDT by Watson Matias
== END 2021-09-01 08:00 | disposition home or self-care (01) | DRG 781 ==
LOC: TRG 09:20 → LD 09:21 → APU 09:22 → LD 12:59 → TRG 13:47
PROVIDERS: ADMIT Student in an Organized Health Care Education/Training Program; ATTEND Student in an Organized Health Care Education/Training Program
DX: O99.512 Diseases of the respiratory system complicating pregnancy, second trimester (principal); J45.909 Unspecified asthma, uncomplicated; O76 Abnormality in fetal heart rate and rhythm complicating labor and delivery; Z20.822 Contact with and (suspected) exposure to COVID-19; J11.1 Influenza due to unidentified influenza virus with other respiratory manifestations; O75.2 Pyrexia during labor, not elsewhere classified; Z3A.25 25 weeks gestation of pregnancy; Z88.1 Allergy status to other antibiotic agents
CPT/HCPCS: 36415; 71045; 80053; 81001; 85025; 87040; 87086; 93005; G0378; 87502; J7120; U0003

== ENCOUNTER 2021-10-06 21:25 | Outpatient (CLI) | payer MEDICAID ==
[2021-10-06 21:57] VITALS: BP 112/56
--- NOTE | 2021-10-06 23:29 | Ultrasound Report ---
ULTRASOUND OBSTETRIC LIMITED INDICATION / CLINICAL INFORMATION: placenta location. Clinical Gestational Age (GA) in weeks, days: 30, 6 TECHNIQUE: Transabdominal. COMPARISON: None available. FINDINGS: HEART RATE (beats per minute): 135 PRESENTATION: Cephalic. ADDITIONAL FINDINGS: There is an anterior grade 1 placenta. IMPRESSION: 1. Anterior grade 1 placenta Signer Name: Owen Oliva DO Signed: 10/06/2021 11:25 PM Workstation Name: [id number]
[2021-10-06 23:33] LABS: Bilirubin,Urine NEG (Negative); Blood,Urine NEG (Negative); Color,Urine Yellow (Yellow); Protein,Urine <15 mg/dL mg/dL (Negative); Urobilinogen,Urine < 2.0 mg/dL (<2.0)
[2021-10-06 23:35] LABS: Bacteria,Urine 1+ /HPF (Negative); Mucus,Urine FEW /HPF
== END 2021-10-07 00:45 | disposition home or self-care (01) ==
LOC: TRG 21:25 → APU 21:28 → TRG 10-07 00:45
PROVIDERS: ATTEND Obstetrics & Gynecology
DX: O26.853 Spotting complicating pregnancy, third trimester (principal); O46.93 Antepartum hemorrhage, unspecified, third trimester; Z3A.30 30 weeks gestation of pregnancy
CPT/HCPCS: 76815; 81001

== ENCOUNTER 2021-12-07 23:01 | Outpatient (CLI) | payer MEDICAID ==
[2021-12-07 23:29] VITALS: BP 121/74
--- NOTE | 2021-12-08 00:33 | Event Note ---
Date: 12/08/21 Pt in triage with c/o of ABD pain and back pain. Pt is having ctx q 5 mins. FHT CAT I. SVE 1/thick/high per triage nurse. Reports +FM, Denies LOF and VB. Discussed options for plan of care, pt agrees to walk for 2 hours and be re- assessed.
== END 2021-12-08 02:06 | disposition home or self-care (01) ==
LOC: TRG 23:01 → APU 23:03 → TRG 12-08 02:06
PROVIDERS: ATTEND Obstetrics & Gynecology
DX: O62.4 Hypertonic, incoordinate, and prolonged uterine contractions (principal); Z3A.39 39 weeks gestation of pregnancy
CPT/HCPCS: 59025

== ENCOUNTER 2021-12-15 20:47 | Inpatient (IN) | payer MEDICAID ==
[2021-12-15] MEDS ORDERED: OXYTOCIN DRIP 30 UNITS/500 ML BAG IV SCH (23:45)
[2021-12-15] MEDS ORDERED: METHYLERGONOVINE MALEATE 0.2 MG/ML VIAL IM PRN (23:46)
[2021-12-15] MEDS ORDERED: LIDOCAINE (2%) 20 MG/1 ML VIAL 20 ML MDV INFILTRATI ONE (23:46)
[2021-12-15] MEDS ORDERED: ACETAMINOPHEN 325 MG TAB PO PRN (23:46)
[2021-12-15] MEDS ORDERED: miSOPROStol 200 MCG TAB PR PRN (23:46)
[2021-12-15] MEDS ORDERED: CARBOPROST TROMETHAMINE 250 MCG/1 ML INJ IM PRN (23:46)
[2021-12-15] MEDS ORDERED: LOPERAMIDE 2 MG CAP PO PRN (23:46)
[2021-12-15] MEDS ORDERED: ePHEDrine SULFATE 50 MG/1 ML INJ IV PRN (23:46)
[2021-12-15] MEDS ORDERED: OXYTOCIN 10 UNIT/1 ML INJ IM PRN (23:46)
[2021-12-15] MEDS ORDERED: BUTORPHANOL 2 MG/1 ML INJ IV PRN (23:46)
[2021-12-15] MEDS ORDERED: TERBUTALINE 1 MG/1 ML INJ SUB-Q PRN (23:46)
--- NOTE | 2021-12-16 00:06 | History and Physical Report ---
History of Present Illness Date of examination: 12/16/21 History of present illness: Patient presented to labor and delivery complaining of pain. During observation in triage the patient tracing revealed tachycardia. Patient is scheduled for induction tomorrow for postdates. Will admit this evening. We will hydrate and attempt to start cervical ripening with Cervidil this evening if staffing permits. 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 no EDC Calculations LMP: 12/09/2021 EDC Confirmation: 12/09/2021 Past History : 2 Term Births: 0 Premature Births: 0 Living Children: 0 Para: 0 Mult. Births: 0 Prev : 0 Aborta: 1 Elect. Ab: 0 Spont. Ab: 1 Ectopics: 0 # 1 Delivery date: 2016 Weeks Gestation: 2 weeks? Delivery type: SAB Comments: D&C, no complications Past Medical History: Asthma Bronchitis Past Surgical History: D&C: 2016 Family History Summary: First Degree Blood Relative - Has No Known Family History - Entered On: 06/16/2021 Social History: Patient is single Smoking History: Patient has never smoked. Risk Factors: Smoked Tobacco Use: Never smoker Smokeless Tobacco Use: Never Passive Smoke Exposure: no HIV High Risk Behavior: no Caffeine Use: 0 drinks per day Exercise: yes Times/wk: 3 Type of Exercise: Walking Exercise Counseling: yes Seatbelt Use: preg-world travel counselor % Sun Exposure: rarely Family History Risk Factors: Family History of WA in 1 Female Relative Age < 65: no Family History of [place] in 1 Male Relative Age < 55: no No Dietary Counseling Reason: pn yes Alcohol Use: yes Drug Use: no Past Medical History Anesthesia Complications: negative Anemia: negative Autoimmune Disorder: negative Bleeding Disorder: negative Blood Transfusions: negative Breast Disease: negative Diabetes: negative Heart Disease: negative Hypertension: negative Hepatitis/Liver Disease: negative Kidney Disease/UTI: negative Neurologic/Epilepsy/Migraines: negative Phlebitis/Varicosities: negative Psychiatric: negative Pulmonary Disease/Asthma: negative Thyroid Disease: negative Hospitalizations: negative Surgery (Non-retail greeter): D&C: 2016 Abnormal PAP: negative MYRTLE Exposure: negative Infertility: negative Uterine Anomaly: negative Uterine Surgery (not C/S): negative Other Gynecologic Problems: negative Social Hx: Patient is single Smoking History: Patient has never smoked. Infection History Hx of STD: none HIV Risk Eval: no Hepatitis B Risk Eval: low risk Personal hx. of genital herpes: no Partner hx. of genital herpes: no Rash, Viral, or Febrile illness since last LMP? no Varicella/Chicken Pox Status: Unknown TB Risk: no Genetic History Congenital Heart Defect: Mom: no Dad: no Elpidio Disease: Mom: no Dad: no Thalassemia Mom: no Dad: no Neural Tube Defect Mom: no Dad: no Down's Syndrome Mom: no Dad: no [place] Mom: no Dad: no Sickle Cell Disease/Trait Mom: no Dad: no Hemophilia Mom: no Dad: no Muscular Dystrophy Mom: no Dad: no Cystic Fibrosis Mom: no Dad: no [place] Chorea Mom: no Dad: no Mental Retardation Mom: no Dad: no Fragile X Mom: no Dad: no Other Genetic/Chromosomal Disorder Mom: no Dad: no Child w/other defect Mom: no Dad: no Enviromental Exposures Xray Exposure: no Medication, drug, or alcohol use since LMP: no Chemical/Other Exposure: no Exposure to Cat Liter: no Hx of Parvovirus (Fifth Disease): no Occupational Exposure to Children: none Current Allergies (reviewed today): CEPHALEXIN (CEPHALEXIN TABS) (Critical Past History Past Medical History: other (SEE HPI) Past Surgical History: other (SEE HPI) OFFICE ASSOCIATE History: other (SEE HPI) Family/Genetic History: other (SEE HPI) Social history: full code, other (SEE HPI) - Obstetrical History Expected Date of Delivery: 12/09/21 Actual Gestation: 41 Week(s) 1 Day(s) : 1 Para: 0 Hx # Term Pregnancies: 0 Number of Pregnancies: 0 Spontaneous Abortions: 0 Induced : 0 Number of Living Children: 0 Medications and Allergies Allergies Allergy/AdvReac Type Severity Reaction Status Date / Time cephalexin [From Keflex] Allergy Rash Verified 01/04/21 05:46 mushroom Allergy Swelling Verified 01/04/21 05:46 Home Medications Medication Instructions Recorded Confirmed Last Taken Type No Known Home Medications [No 08/30/21 08/30/21 Unknown History Reported Home Medications] Active Meds: Active Medications Acetaminophen (Acetaminophen 325 Mg Tab) 650 mg PO Q4H PRN PRN Reason: Pain, Mild (1-3) Butorphanol Tartrate (Butorphanol 2 Mg/1 Ml Inj) 1 mg IV Q2H PRN PRN Reason: Pain, Moderate(4-6) LABOR PAIN Butorphanol Tartrate (Butorphanol 2 Mg/1 Ml Inj) 2 mg IV Q2H PRN PRN Reason: Pain , Severe (7-10) Carboprost Tromethamine (Carboprost Tromethamine 250 Mcg/1 Ml Inj) 250 mcg IM ONCE PRN PRN Reason: Uterine Bleeding Dinoprostone (Dinoprostone 10 Mg Vag Supp) 10 mg VG ONCE ONE Stop: 12/15/21 23:47 Ephedrine Sulfate (Ephedrine Sulfate 50 Mg/1 Ml Inj) 10 mg IV Q2M PRN PRN Reason: Hypotension Lactated Ringer's (Lactated Ringers) 1,000 mls @ 125 mls/hr IV DIRECT JOANNE Oxytocin/Sodium Chloride (Pitocin/Ns 30 Unit/500ml) 30 units in 500 mls @ 40 mls/hr IV TITR JOANNE Lidocaine (Lidocaine (2%) 20 Mg/1 Ml Vial 20 Ml Mdv) 20 ml INFILTRATI ONCE ONE Stop: 12/15/21 23:47 Loperamide HCl (Loperamide 2 Mg Cap) 2 mg PO ONCE PRN PRN Reason: give with Hemabate Methylergonovine Maleate (Methylergonovine Maleate 0.2 Mg/Ml Vial) 0.2 mg IM ONCE PRN PRN Reason: Uterine Bleeding Misoprostol (Misoprostol 200 Mcg Tab) 800 mcg NM ONCE PRN PRN Reason: Uterine Bleeding Oxytocin (Oxytocin 10 Unit/1 Ml Inj) 10 unit IM ONCE PRN PRN Reason: Uterine Bleeding Terbutaline Sulfate (Terbutaline 1 Mg/1 Ml Inj) 0.25 mg SUB-Q ONCE PRN PRN Reason: Hyperstimulation/Hypertonicity - Vital Signs Vital signs: Vital Signs Pulse Ox 86 12/08/21 01:47 Temp Pulse Resp BP Pulse Ox 99.4 F 102 H 14 131/81 98 12/15/21 23:01 12/16/21 00:00 12/15/21 22:54 12/15/21 21:46 12/16/21 00:00 - Physical Exam Cardiovascular: Regular rate Lungs: Positive: Normal air movement Abdomen: Positive: normal appearance Genitourinary (Female): Positive: normal external genitalia Cervix: Positive: other (Per RN) Uterus: Positive: enlarged - Obstetrical FHR: category 1 Uterine Contraction Monitor Mode: External Results Result Diagrams: 12/16/21 00:13 All other labs normal. Assessment and Plan - Patient Problems (1) Post term at 41 weeks gestation Current Visit: Yes Status: Acute Plan to address problem: Will place Cervidil this evening monitor heart rate. (2) tachycardia affecting management of mother Current Visit: Yes Status: Acute Plan to address problem: Will start IV hydration monitor heart rate.
[2021-12-16 00:26] LABS: Hematocrit 29.8 % (30.3-42.9); Mean Corpuscular HGB Conc 33 % (30-34); Mean Corpuscular Volume 80 fl (79-97); Platelet Count 331 K/mm3 (140-440); Red Cell Distribution Width 16.2 % (13.2-15.2)
[2021-12-16] MEDS ORDERED: DINOPROSTONE 10 MG VAG SUPP VG ONE ×2 (01:00→20:00)
[2021-12-16] MEDS: LACTATED RINGERS 1,000 ML IV SCH ×2 (03:56→10:18)
--- NOTE | 2021-12-16 07:41 | Progress Note ---
Assessment and Plan A: 21 y.o. @ 41.1 wks. Postdates IOL. - Patient Problems (1) Post term at 41 weeks gestation Current Visit: Yes Status: Acute Plan to address problem: Continue with IOL. Cervidil to be taken out at 1600. After Cervidil removed, if cervical exam the same, will allow for shower and dinner. - Another Cervidil to be placed around 1930. Continue to monitor status through EFM. Subjective - Subjective Date of service: 12/16/21 Principal diagnosis: IUP @ 41.1 wks, postdates IOL Interval history: Cervidil was placed at 0355 am. Discussed plan with patient: take out Cervidil at 1600 and assess her cervix. If her cervical exam is the same, will allow her to shower and eat dinner. Pt expressed understanding and agrees to plan. Patient reports: movement normal, no new complaints, no loss of fluid, no vaginal bleeding, no contractions Objective - Vital Signs Vital Signs: Vital Signs - 12hr 12/15/21 12/15/21 12/15/21 21:45 21:46 21:50 Temperature Pulse Rate 95 H 93 H 89 Respiratory Rate Blood Pressure 131/81 O2 Sat by Pulse 100 98 Oximetry O2 Sat by Pulse Oximetry [ Bilateral] 12/15/21 12/15/21 12/15/21 21:55 22:00 22:05 Temperature Pulse Rate 96 H 98 H 92 H Respiratory Rate Blood Pressure O2 Sat by Pulse 100 100 98 Oximetry O2 Sat by Pulse Oximetry [ Bilateral] 12/15/21 12/15/21 12/15/21 22:10 22:15 22:20 Temperature Pulse Rate 93 H 108 H 96 H Respiratory Rate Blood Pressure O2 Sat by Pulse 98 99 99 Oximetry O2 Sat by Pulse Oximetry [ Bilateral] 12/15/21 12/15/21 12/15/21 22:25 22:30 22:35 Temperature Pulse Rate 109 H 98 H 93 H Respiratory Rate Blood Pressure O2 Sat by Pulse 98 99 99 Oximetry O2 Sat by Pulse Oximetry [ Bilateral] 12/15/21 12/15/21 12/15/21 22:40 22:45 22:50 Temperature Pulse Rate 89 91 H 88 Respiratory Rate Blood Pressure O2 Sat by Pulse 99 98 99 Oximetry O2 Sat by Pulse Oximetry [ Bilateral] 12/15/21 12/15/21 12/15/21 22:54 22:55 23:00 Temperature 98.2 F Pulse Rate 98 H 101 H Respiratory 14 Rate Blood Pressure O2 Sat by Pulse 100 98 98 Oximetry O2 Sat by Pulse Oximetry [ Bilateral] 12/15/21 12/15/21 12/15/21 23:01 23:05 23:10 Temperature 99.4 F Pulse Rate 99 H 89 Respiratory Rate Blood Pressure O2 Sat by Pulse 98 98 Oximetry O2 Sat by Pulse Oximetry [ Bilateral] 12/15/21 12/15/21 12/15/21 23:15 23:20 23:25 Temperature Pulse Rate 90 81 104 H Respiratory Rate Blood Pressure O2 Sat by Pulse 97 99 98 Oximetry O2 Sat by Pulse Oximetry [ Bilateral] 12/15/21 12/15/21 12/15/21 23:30 23:35 23:40 Temperature Pulse Rate 81 92 H 87 Respiratory Rate Blood Pressure O2 Sat by Pulse 99 98 100 Oximetry O2 Sat by Pulse Oximetry [ Bilateral] 12/15/21 12/15/21 12/15/21 23:45 23:50 23:55 Temperature Pulse Rate 90 89 108 H Respiratory Rate Blood Pressure O2 Sat by Pulse 99 98 97 Oximetry O2 Sat by Pulse Oximetry [ Bilateral] 12/16/21 12/16/21 12/16/21 00:00 00:05 00:10 Temperature Pulse Rate 102 H 97 H 95 H Respiratory Rate Blood Pressure O2 Sat by Pulse 98 99 99 Oximetry O2 Sat by Pulse Oximetry [ Bilateral] 12/16/21 12/16/21 12/16/21 00:15 00:20 00:21 Temperature Pulse Rate 88 69 84 Respiratory Rate Blood Pressure O2 Sat by Pulse 97 97 94 Oximetry O2 Sat by Pulse Oximetry [ Bilateral] 12/16/21 12/16/21 12/16/21 00:25 01:06 01:07 Temperature Pulse Rate 82 75 81 Respiratory Rate Blood Pressure O2 Sat by Pulse 96 97 93 Oximetry O2 Sat by Pulse Oximetry [ Bilateral] 12/16/21 12/16/21 12/16/21 01:11 01:16 01:21 Temperature Pulse Rate 72 80 86 Respiratory Rate Blood Pressure O2 Sat by Pulse 95 97 99 Oximetry O2 Sat by Pulse Oximetry [ Bilateral] 12/16/21 12/16/21 12/16/21 01:26 01:31 01:33 Temperature Pulse Rate 74 80 79 Respiratory Rate Blood Pressure O2 Sat by Pulse 98 98 94 Oximetry O2 Sat by Pulse Oximetry [ Bilateral] 12/16/21 12/16/21 12/16/21 01:36 01:41 01:46 Temperature Pulse Rate 76 72 79 Respiratory Rate Blood Pressure O2 Sat by Pulse 96 97 97 Oximetry O2 Sat by Pulse Oximetry [ Bilateral] 12/16/21 12/16/21 12/16/21 01:51 01:56 01:58 Temperature Pulse Rate 73 76 84 Respiratory Rate Blood Pressure O2 Sat by Pulse 96 96 93 Oximetry O2 Sat by Pulse Oximetry [ Bilateral] 12/16/21 12/16/21 12/16/21 02:01 02:06 02:11 Temperature Pulse Rate 85 79 88 Respiratory Rate Blood Pressure O2 Sat by Pulse 98 97 97 Oximetry O2 Sat by Pulse Oximetry [ Bilateral] 12/16/21 12/16/21 12/16/21 02:16 02:21 02:26 Temperature Pulse Rate 77 83 78 Respiratory Rate Blood Pressure O2 Sat by Pulse 97 97 95 Oximetry O2 Sat by Pulse Oximetry [ Bilateral] 12/16/21 12/16/21 12/16/21 02:31 02:36 02:41 Temperature Pulse Rate 84 81 80 Respiratory Rate Blood Pressure O2 Sat by Pulse 96 94 96 Oximetry O2 Sat by Pulse Oximetry [ Bilateral] 12/16/21 12/16/21 12/16/21 02:46 02:51 02:56 Temperature Pulse Rate 84 79 79 Respiratory Rate Blood Pressure O2 Sat by Pulse 97 97 96 Oximetry O2 Sat by Pulse Oximetry [ Bilateral] 12/16/21 12/16/21 12/16/21 03:01 03:06 03:11 Temperature Pulse Rate 79 78 80 Respiratory Rate Blood Pressure O2 Sat by Pulse 97 96 97 Oximetry O2 Sat by Pulse Oximetry [ Bilateral] 12/16/21 12/16/21 12/16/21 03:16 03:21 03:25 Temperature Pulse Rate 79 85 91 H Respiratory Rate Blood Pressure O2 Sat by Pulse 96 98 94 Oximetry O2 Sat by Pulse Oximetry [ Bilateral] 12/16/21 12/16/21 12/16/21 03:26 03:31 03:34 Temperature Pulse Rate 100 H 87 82 Respiratory Rate Blood Pressure O2 Sat by Pulse 96 96 94 Oximetry O2 Sat by Pulse Oximetry [ Bilateral] 0912/16/21 12/16/21 03:36 03:41 03:43 Temperature 98.2 F Pulse Rate 94 H 92 H Respiratory 16 Rate Blood Pressure O2 Sat by Pulse 98 98 Oximetry O2 Sat by Pulse 98 Oximetry [ Bilateral] 12/16/21 12/16/21 12/16/21 03:46 03:48 03:55 Temperature Pulse Rate 80 94 H 87 Respiratory Rate Blood Pressure O2 Sat by Pulse 96 94 96 Oximetry O2 Sat by Pulse Oximetry [ Bilateral] 12/16/21 12/16/21 12/16/21 04:00 04:05 04:10 Temperature Pulse Rate 78 88 96 H Respiratory Rate Blood Pressure O2 Sat by Pulse 99 98 98 Oximetry O2 Sat by Pulse Oximetry [ Bilateral] 12/16/21 12/16/21 12/16/21 04:15 04:20 04:25 Temperature Pulse Rate 87 73 85 Respiratory Rate Blood Pressure O2 Sat by Pulse 97 98 97 Oximetry O2 Sat by Pulse Oximetry [ Bilateral] 12/16/21 12/16/21 12/16/21 04:29 04:30 04:35 Temperature Pulse Rate 88 75 72 Respiratory Rate Blood Pressure O2 Sat by Pulse 94 98 98 Oximetry O2 Sat by Pulse Oximetry [ Bilateral] 12/16/21 12/16/21 12/16/21 04:40 04:45 04:50 Temperature Pulse Rate 97 H 92 H 91 H Respiratory Rate Blood Pressure O2 Sat by Pulse 98 97 98 Oximetry O2 Sat by Pulse Oximetry [ Bilateral] 12/16/21 12/16/21 12/16/21 04:55 05:00 05:05 Temperature Pulse Rate 87 89 83 Respiratory Rate Blood Pressure O2 Sat by Pulse 97 97 97 Oximetry O2 Sat by Pulse Oximetry [ Bilateral] 12/16/21 12/16/21 12/16/21 05:10 05:15 05:20 Temperature Pulse Rate 71 76 74 Respiratory Rate Blood Pressure O2 Sat by Pulse 98 97 97 Oximetry O2 Sat by Pulse Oximetry [ Bilateral] 12/16/21 12/16/21 12/16/21 05:25 05:30 05:33 Temperature Pulse Rate 95 H 92 H 87 Respiratory Rate Blood Pressure O2 Sat by Pulse 96 97 94 Oximetry O2 Sat by Pulse Oximetry [ Bilateral] 12/16/21 12/16/21 12/16/21 05:35 05:39 05:40 Temperature Pulse Rate 79 89 80 Respiratory Rate Blood Pressure O2 Sat by Pulse 93 94 95 Oximetry O2 Sat by Pulse Oximetry [ Bilateral] 12/16/21 12/16/21 12/16/21 05:45 05:50 05:55 Temperature Pulse Rate 92 H 89 82 Respiratory Rate Blood Pressure O2 Sat by Pulse 97 97 98 Oximetry O2 Sat by Pulse Oximetry [ Bilateral] 12/16/21 12/16/21 12/16/21 06:00 06:05 06:10 Temperature Pulse Rate 82 84 76 Respiratory Rate Blood Pressure O2 Sat by Pulse 98 98 97 Oximetry O2 Sat by Pulse Oximetry [ Bilateral] 12/16/21 12/16/21 12/16/21 06:15 06:20 06:25 Temperature Pulse Rate 99 H 74 66 Respiratory Rate Blood Pressure O2 Sat by Pulse 97 98 98 Oximetry O2 Sat by Pulse Oximetry [ Bilateral] 12/16/21 12/16/21 12/16/21 06:30 06:35 06:40 Temperature Pulse Rate 79 91 H 87 Respiratory Rate Blood Pressure O2 Sat by Pulse 98 98 97 Oximetry O2 Sat by Pulse Oximetry [ Bilateral] 12/16/21 12/16/21 12/16/21 06:45 06:50 06:55 Temperature Pulse Rate 94 H 107 H 76 Respiratory Rate Blood Pressure O2 Sat by Pulse 97 97 96 Oximetry O2 Sat by Pulse Oximetry [ Bilateral] 12/16/21 12/16/21 12/16/21 06:56 07:00 07:05 Temperature Pulse Rate 98 H 90 85 Respiratory Rate Blood Pressure O2 Sat by Pulse 94 98 98 Oximetry O2 Sat by Pulse Oximetry [ Bilateral] 12/16/21 12/16/21 12/16/21 07:10 07:15 07:20 Temperature Pulse Rate 87 72 91 H Respiratory Rate Blood Pressure O2 Sat by Pulse 95 97 98 Oximetry O2 Sat by Pulse Oximetry [ Bilateral] 12/16/21 12/16/21 12/16/21 07:25 07:30 07:32 Temperature Pulse Rate 72 75 85 Respiratory Rate Blood Pressure O2 Sat by Pulse 97 96 92 Oximetry O2 Sat by Pulse Oximetry [ Bilateral] 12/16/21 12/16/21 07:35 07:38 Temperature 98.5 F Pulse Rate 89 Respiratory Rate Blood Pressure 125/81 O2 Sat by Pulse 98 Oximetry O2 Sat by Pulse Oximetry [ Bilateral] - Exam Cardiovascular: Regular rate Lungs: Normal air movement Abdomen: Present: normal appearance, soft FHR: category 1 Uterine Contraction Monitor Mode: External Cervical Dilatation: 1 (Per RN taking care of patient) Cervical Effacement Percentage: 50 station: -3 Uterine Contraction Pattern: Irregular Uterine Tone Measurement Phase: Resting Uterine Contraction Intensity: Moderate Extremities: normal - Labs Labs: Abnormal Labs 12/16/21 00:13 Hgb 10.0 L Hct 29.8 L MCH 27 L RDW 16.2 H Laboratory Results - last 24 hr 12/16/21 12/16/21 00:13 00:13 WBC 9.4 RBC 3.70 Hgb 10.0 L Hct 29.8 L MCV 80 MCH 27 L MCHC 33 RDW 16.2 H Plt Count 331 Blood Type A POSITIVE Antibody Screen Negative
[2021-12-16] MEDS: BUTORPHANOL 2 MG/1 ML INJ IV PRN ×2 (17:45→22:04)
--- NOTE | 2021-12-16 19:52 | Progress Note ---
Assessment and Plan A: 21 y.o. @ 41.1 wks, IOL d/t postdates. - Patient Problems (1) Post term at 41 weeks gestation Current Visit: Yes Status: Acute Plan to address problem: Cervidil placed. Continue to monitor status through EFM. Subjective - Subjective Date of service: 12/16/21 Principal diagnosis: IUP @ 41.1 wks, postdates IOL Interval history: Pt doing well. Feeling some contractions. Denies need for pain medication at this time. Patient reports: movement normal, no new complaints, no loss of fluid, no vaginal bleeding, no contractions Objective - Vital Signs Vital Signs: Vital Signs - 12hr 12/16/21 12/16/21 12/16/21 07:50 07:55 07:59 Temperature Pulse Rate 105 H 89 88 Respiratory Rate Blood Pressure O2 Sat by Pulse 97 97 91 Oximetry 12/16/21 12/16/21 12/16/21 08:00 08:05 08:07 Temperature Pulse Rate 71 69 87 Respiratory Rate Blood Pressure O2 Sat by Pulse 94 94 93 Oximetry 12/16/21 12/16/21 12/16/21 08:10 08:12 08:15 Temperature Pulse Rate 79 83 89 Respiratory Rate Blood Pressure O2 Sat by Pulse 97 94 95 Oximetry 12/16/21 12/16/21 12/16/21 08:18 08:20 08:24 Temperature Pulse Rate 84 97 H 95 H Respiratory Rate Blood Pressure O2 Sat by Pulse 93 95 93 Oximetry 12/16/21 12/16/21 12/16/21 08:25 08:30 08:31 Temperature Pulse Rate 95 H 82 77 Respiratory Rate Blood Pressure O2 Sat by Pulse 94 95 94 Oximetry 12/16/21 12/16/21 12/16/21 08:35 08:37 08:40 Temperature Pulse Rate 77 85 89 Respiratory Rate Blood Pressure O2 Sat by Pulse 94 94 94 Oximetry 12/16/21 12/16/21 12/16/21 08:44 08:45 08:50 Temperature Pulse Rate 85 79 95 H Respiratory Rate Blood Pressure O2 Sat by Pulse 92 96 95 Oximetry 12/16/21 12/16/21 12/16/21 08:51 08:55 08:58 Temperature Pulse Rate 94 H 85 89 Respiratory Rate Blood Pressure O2 Sat by Pulse 90 94 91 Oximetry 12/16/21 12/16/21 12/16/21 09:00 09:05 09:10 Temperature Pulse Rate 93 H 83 75 Respiratory Rate Blood Pressure O2 Sat by Pulse 96 94 94 Oximetry 12/16/21 12/16/21 12/16/21 09:15 09:16 09:20 Temperature Pulse Rate 89 93 H 83 Respiratory Rate Blood Pressure O2 Sat by Pulse 96 94 95 Oximetry 12/16/21 12/16/21 12/16/21 09:25 09:30 09:31 Temperature Pulse Rate 72 95 H 86 Respiratory Rate Blood Pressure O2 Sat by Pulse 95 96 94 Oximetry 12/16/21 12/16/21 12/16/21 09:35 09:40 09:45 Temperature Pulse Rate 90 72 89 Respiratory Rate Blood Pressure O2 Sat by Pulse 96 95 96 Oximetry 12/16/21 12/16/21 12/16/21 09:47 09:50 09:53 Temperature Pulse Rate 84 88 82 Respiratory Rate Blood Pressure O2 Sat by Pulse 92 96 92 Oximetry 12/16/21 12/16/21 12/16/21 09:55 10:16 10:17 Temperature Pulse Rate 95 H 89 83 Respiratory Rate Blood Pressure O2 Sat by Pulse 97 96 93 Oximetry 12/16/21 12/16/21 12/16/21 10:21 10:24 10:26 Temperature Pulse Rate 80 92 H 82 Respiratory Rate Blood Pressure O2 Sat by Pulse 96 91 98 Oximetry 12/16/21 12/16/21 12/16/21 10:31 10:36 10:41 Temperature Pulse Rate 84 78 90 Respiratory Rate Blood Pressure O2 Sat by Pulse 97 97 96 Oximetry 12/16/21 12/16/21 12/16/21 10:46 10:51 10:52 Temperature Pulse Rate 72 83 77 Respiratory Rate Blood Pressure O2 Sat by Pulse 96 96 94 Oximetry 12/16/21 12/16/21 12/16/21 10:56 10:58 11:01 Temperature Pulse Rate 85 84 85 Respiratory Rate Blood Pressure O2 Sat by Pulse 95 92 98 Oximetry 12/16/21 12/16/21 12/16/21 11:06 11:11 11:16 Temperature Pulse Rate 75 91 H 80 Respiratory Rate Blood Pressure O2 Sat by Pulse 97 97 96 Oximetry 12/16/21 12/16/21 12/16/21 11:18 11:20 11:21 Temperature 98.8 F Pulse Rate 99 H 75 Respiratory 16 Rate Blood Pressure O2 Sat by Pulse 94 95 Oximetry 12/16/21 12/16/21 12/16/21 11:25 11:26 11:31 Temperature Pulse Rate 83 83 76 Respiratory Rate Blood Pressure O2 Sat by Pulse 94 96 96 Oximetry 12/16/21 12/16/21 12/16/21 11:33 11:36 11:41 Temperature Pulse Rate 83 83 90 Respiratory Rate Blood Pressure O2 Sat by Pulse 93 97 96 Oximetry 12/16/21 12/16/21 12/16/21 11:44 11:46 11:51 Temperature Pulse Rate 95 H 84 96 H Respiratory Rate Blood Pressure O2 Sat by Pulse 93 96 95 Oximetry 12/16/21 12/16/21 12/16/21 11:56 12:01 12:05 Temperature Pulse Rate 88 83 75 Respiratory Rate Blood Pressure O2 Sat by Pulse 97 97 94 Oximetry 12/16/21 12/16/21 12/16/21 12:06 12:11 12:16 Temperature Pulse Rate 91 H 76 84 Respiratory Rate Blood Pressure O2 Sat by Pulse 97 96 98 Oximetry 12/16/21 12/16/21 12/16/21 12:21 12:26 12:31 Temperature Pulse Rate 98 H 91 H 76 Respiratory Rate Blood Pressure O2 Sat by Pulse 98 98 98 Oximetry 12/16/21 12/16/21 12/16/21 12:36 12:41 12:46 Temperature Pulse Rate 77 83 88 Respiratory Rate Blood Pressure O2 Sat by Pulse 97 97 99 Oximetry 12/16/21 12/16/21 12/16/21 12:51 12:56 13:01 Temperature Pulse Rate 86 85 99 H Respiratory Rate Blood Pressure O2 Sat by Pulse 96 95 98 Oximetry 12/16/21 12/16/21 12/16/21 13:06 13:11 13:16 Temperature 97.8 F Pulse Rate 86 91 H 106 H Respiratory Rate Blood Pressure O2 Sat by Pulse 98 99 97 Oximetry 12/16/21 12/16/21 12/16/21 13:21 15:02 15:03 Temperature Pulse Rate 80 96 H 88 Respiratory Rate Blood Pressure 124/65 O2 Sat by Pulse 99 99 Oximetry 12/16/21 12/16/21 12/16/21 15:08 15:13 15:18 Temperature Pulse Rate 88 76 77 Respiratory Rate Blood Pressure O2 Sat by Pulse 98 98 99 Oximetry 12/16/21 12/16/21 12/16/21 15:23 15:28 15:33 Temperature Pulse Rate 86 86 81 Respiratory Rate Blood Pressure O2 Sat by Pulse 98 99 99 Oximetry 12/16/21 12/16/21 12/16/21 15:38 15:43 15:48 Temperature Pulse Rate 84 79 75 Respiratory Rate Blood Pressure O2 Sat by Pulse 99 99 100 Oximetry 12/16/21 12/16/21 12/16/21 15:53 15:58 16:08 Temperature Pulse Rate 81 82 89 Respiratory Rate Blood Pressure O2 Sat by Pulse 99 99 100 Oximetry 12/16/21 12/16/21 12/16/21 16:13 16:18 16:23 Temperature Pulse Rate 90 83 88 Respiratory Rate Blood Pressure O2 Sat by Pulse 99 100 100 Oximetry 12/16/21 12/16/21 12/16/21 16:28 16:33 16:38 Temperature Pulse Rate 81 112 H 84 Respiratory Rate Blood Pressure O2 Sat by Pulse 100 99 100 Oximetry 12/16/21 12/16/21 12/16/21 16:43 16:48 16:53 Temperature Pulse Rate 85 92 H 96 H Respiratory Rate Blood Pressure O2 Sat by Pulse 100 100 100 Oximetry 12/16/21 12/16/21 12/16/21 16:58 17:03 17:08 Temperature Pulse Rate 86 102 H 84 Respiratory Rate Blood Pressure O2 Sat by Pulse 100 100 100 Oximetry 12/16/21 12/16/21 12/16/21 17:13 17:18 17:23 Temperature Pulse Rate 94 H 88 77 Respiratory Rate Blood Pressure O2 Sat by Pulse 100 100 100 Oximetry 12/16/21 12/16/21 12/16/21 17:28 17:38 17:43 Temperature Pulse Rate 104 H 77 92 H Respiratory Rate Blood Pressure O2 Sat by Pulse 99 99 100 Oximetry 12/16/21 12/16/21 12/16/21 17:48 17:53 17:58 Temperature Pulse Rate 79 78 77 Respiratory Rate Blood Pressure O2 Sat by Pulse 98 97 98 Oximetry 12/16/21 12/16/21 12/16/21 18:03 18:08 18:13 Temperature Pulse Rate 85 72 79 Respiratory Rate Blood Pressure O2 Sat by Pulse 98 100 98 Oximetry 12/16/21 12/16/21 12/16/21 18:18 18:23 18:28 Temperature Pulse Rate 74 75 74 Respiratory Rate Blood Pressure O2 Sat by Pulse 98 98 98 Oximetry 12/16/21 12/16/21 12/16/21 18:33 18:36 18:38 Temperature 98.9 F Pulse Rate 73 71 Respiratory Rate Blood Pressure O2 Sat by Pulse 99 98 Oximetry 12/16/21 12/16/21 12/16/21 18:43 18:48 18:53 Temperature Pulse Rate 77 82 75 Respiratory Rate Blood Pressure O2 Sat by Pulse 99 98 98 Oximetry 12/16/21 12/16/21 12/16/21 18:58 19:03 19:08 Temperature Pulse Rate 95 H 80 82 Respiratory Rate Blood Pressure O2 Sat by Pulse 100 99 99 Oximetry 12/16/21 12/16/21 12/16/21 19:13 19:18 19:23 Temperature Pulse Rate 70 82 94 H Respiratory Rate Blood Pressure O2 Sat by Pulse 99 99 99 Oximetry 12/16/21 12/16/21 12/16/21 19:28 19:33 19:42 Temperature Pulse Rate 86 103 H 90 Respiratory Rate Blood Pressure O2 Sat by Pulse 99 100 100 Oximetry 12/16/21 19:43 Temperature 98.9 F Pulse Rate 90 Respiratory Rate Blood Pressure 125/78 O2 Sat by Pulse Oximetry - Exam Narrative Exam: Cervidil placed without difficulty. Cardiovascular: Regular rate Lungs: Normal air movement Abdomen: Present: normal appearance, soft Vulva: both: normal Uterus: Present: normal FHR: category 1 Uterine Contraction Monitor Mode: External Uterine Contraction Pattern: Irregular Uterine Tone Measurement Phase: Resting Uterine Contraction Intensity: Moderate Extremities: normal - Labs Labs: Abnormal Labs 12/16/21 00:13 Hgb 10.0 L Hct 29.8 L MCH 27 L RDW 16.2 H Laboratory Results - last 24 hr 12/16/21 12/16/21 12/16/21 00:13 00:13 09:59 WBC 9.4 RBC 3.70 Hgb 10.0 L Hct 29.8 L MCV 80 MCH 27 L MCHC 33 RDW 16.2 H Plt Count 331 SARS-CoV-2 (PCR) Negative Blood Type A POSITIVE Antibody Screen Negative
--- NOTE | 2021-12-17 00:29 | Event Note ---
Date: 12/17/21 Spoke with RN who informed me that patient has pulled out her Cervidil while using the restroom. Will continue with IOL with low dose Pitocin.
--- NOTE | 2021-12-17 02:19 | Anesthesia Consultation ---
Anesthesia Consult and Med Hx Date of service: 12/17/21 - Airway Anesthetic Teeth Evaluation: Good ROM Head & Neck: Adequate Mental/Hyoid Distance: Adequate Mallampati Class: Class II Intubation Access Assessment: Good - Pulmonary Exam CTA: Yes - Cardiac Exam Cardiac Exam: RRR - Pre-Operative Health Status ASA Pre-Surgery Classification: ASA2 Proposed Anesthetic Plan: Epidural - Pulmonary Hx Asthma: Yes COPD: No - Cardiovascular System Hx Hypertension: No - Central Nervous System Hx Seizures: No Hx Psychiatric Problems: No - Endocrine Hx Renal Disease: No Hx End Stage Renal Disease: No Hx Hypothyroidism: No Hx Hyperthyroidism: No - Hematic Hx Anemia: No Hx Sickle Cell Disease: No - Other Systems Hx Alcohol Use: No
[2021-12-17] MEDS ORDERED: NALOXONE 0.4 MG/1 ML INJ IV PRN (02:22)
[2021-12-17] MEDS ORDERED: ePHEDrine SULFATE 50 MG/1 ML INJ IV PRN (02:22)
--- NOTE | 2021-12-17 02:24 | Progress Note ---
Labor Epidural - Labor Epidural Start Time: 02:00 Stop Time: 20:07 Performed by:: BRADLY LOMBARDO Procedure: Patient is requesting epidural for labor and pain. H&P, labs were reviewed. Patient IDed, all questions and concerns were answered, and consent was signed. Timeout was performed at bedside. Patient in sitting position. Sterile prep and drape was performed. 3ml of 1% lidocaine skin wheal at L[3]- L [4]. 17- gauge Tuohy epidural needle was advanced to loss of resistance with air technique cm. Negative CSF negative blood. Epidural catheter advanced to [] centimeters. [negative] Aspiration [negative] test dose. Sterile dressing applied. Patient tolerated procedure.
[2021-12-17] MEDS ORDERED: fentaNYL-BUPIV 2 MCG/ML-0.125% 200 MCG/100 ML BAG EPIDURAL SCH (03:00)
--- NOTE | 2021-12-17 03:22 | Progress Note ---
Assessment and Plan A: 21 y.o. @ 41.2 wks, active labor. - Patient Problems (1) Post term at 41 weeks gestation Current Visit: Yes Status: Acute Plan to address problem: Continue with expectant management. Anticipate . Subjective - Subjective Date of service: 12/17/21 Principal diagnosis: IUP @ 41.2 wks, postdates IOL Interval history: Pt comfortable with epidural pain bennett. Pt states that she is feeling a lot of pressure. Patient reports: new complaints (rectal pressure), loss of fluid (Blood show), vaginal bleeding, movement normal Objective - Vital Signs Vital Signs: Vital Signs - 12hr 12/16/21 12/16/21 12/16/21 15:23 15:28 15:33 Temperature Pulse Rate 86 86 81 Blood Pressure O2 Sat by Pulse 98 99 99 Oximetry O2 Sat by Pulse Oximetry [ Bilateral] 12/16/21 12/16/21 12/16/21 15:38 15:43 15:48 Temperature Pulse Rate 84 79 75 Blood Pressure O2 Sat by Pulse 99 99 100 Oximetry O2 Sat by Pulse Oximetry [ Bilateral] 12/16/21 12/16/21 12/16/21 15:53 15:58 16:08 Temperature Pulse Rate 81 82 89 Blood Pressure O2 Sat by Pulse 99 99 100 Oximetry O2 Sat by Pulse Oximetry [ Bilateral] 12/16/21 12/16/21 12/16/21 16:13 16:18 16:23 Temperature Pulse Rate 90 83 88 Blood Pressure O2 Sat by Pulse 99 100 100 Oximetry O2 Sat by Pulse Oximetry [ Bilateral] 12/16/21 12/16/21 12/16/21 16:28 16:33 16:38 Temperature Pulse Rate 81 112 H 84 Blood Pressure O2 Sat by Pulse 100 99 100 Oximetry O2 Sat by Pulse Oximetry [ Bilateral] 12/16/21 12/16/21 12/16/21 16:43 16:48 16:53 Temperature Pulse Rate 85 92 H 96 H Blood Pressure O2 Sat by Pulse 100 100 100 Oximetry O2 Sat by Pulse Oximetry [ Bilateral] 12/16/21 12/16/21 12/16/21 16:58 17:03 17:08 Temperature Pulse Rate 86 102 H 84 Blood Pressure O2 Sat by Pulse 100 100 100 Oximetry O2 Sat by Pulse Oximetry [ Bilateral] 12/16/21 12/16/21 12/16/21 17:13 17:18 17:23 Temperature Pulse Rate 94 H 88 77 Blood Pressure O2 Sat by Pulse 100 100 100 Oximetry O2 Sat by Pulse Oximetry [ Bilateral] 12/16/21 12/16/21 12/16/21 17:28 17:38 17:43 Temperature Pulse Rate 104 H 77 92 H Blood Pressure O2 Sat by Pulse 99 99 100 Oximetry O2 Sat by Pulse Oximetry [ Bilateral] 12/16/21 12/16/21 12/16/21 17:48 17:53 17:58 Temperature Pulse Rate 79 78 77 Blood Pressure O2 Sat by Pulse 98 97 98 Oximetry O2 Sat by Pulse Oximetry [ Bilateral] 12/16/21 12/16/21 12/16/21 18:03 18:08 18:13 Temperature Pulse Rate 85 72 79 Blood Pressure O2 Sat by Pulse 98 100 98 Oximetry O2 Sat by Pulse Oximetry [ Bilateral] 12/16/21 12/16/21 12/16/21 18:18 18:23 18:28 Temperature Pulse Rate 74 75 74 Blood Pressure O2 Sat by Pulse 98 98 98 Oximetry O2 Sat by Pulse Oximetry [ Bilateral] 12/16/21 12/16/21 12/16/21 18:33 18:36 18:38 Temperature 98.9 F Pulse Rate 73 71 Blood Pressure O2 Sat by Pulse 99 98 Oximetry O2 Sat by Pulse Oximetry [ Bilateral] 12/16/21 12/16/21 12/16/21 18:43 18:48 18:53 Temperature Pulse Rate 77 82 75 Blood Pressure O2 Sat by Pulse 99 98 98 Oximetry O2 Sat by Pulse Oximetry [ Bilateral] 12/16/21 12/16/21 12/16/21 18:58 19:03 19:08 Temperature Pulse Rate 95 H 80 82 Blood Pressure O2 Sat by Pulse 100 99 99 Oximetry O2 Sat by Pulse Oximetry [ Bilateral] 12/16/21 12/16/21 12/16/21 19:13 19:18 19:23 Temperature Pulse Rate 70 82 94 H Blood Pressure O2 Sat by Pulse 99 99 99 Oximetry O2 Sat by Pulse Oximetry [ Bilateral] 12/16/21 12/16/21 12/16/21 19:28 19:33 19:42 Temperature Pulse Rate 86 103 H 90 Blood Pressure O2 Sat by Pulse 99 100 100 Oximetry O2 Sat by Pulse Oximetry [ Bilateral] 12/16/21 12/16/21 12/16/21 19:43 19:44 19:47 Temperature 98.9 F Pulse Rate 90 83 Blood Pressure 125/78 O2 Sat by Pulse 99 Oximetry O2 Sat by Pulse 98 Oximetry [ Bilateral] 12/16/21 12/16/21 12/16/21 19:52 19:57 20:02 Temperature Pulse Rate 87 88 90 Blood Pressure O2 Sat by Pulse 98 98 99 Oximetry O2 Sat by Pulse Oximetry [ Bilateral] 12/16/21 12/16/21 12/16/21 20:07 20:12 20:17 Temperature Pulse Rate 88 90 88 Blood Pressure O2 Sat by Pulse 100 100 100 Oximetry O2 Sat by Pulse Oximetry [ Bilateral] 12/16/21 12/16/21 12/16/21 20:22 20:27 20:32 Temperature Pulse Rate 89 92 H 104 H Blood Pressure O2 Sat by Pulse 99 98 98 Oximetry O2 Sat by Pulse Oximetry [ Bilateral] 12/16/21 12/16/21 12/16/21 20:33 20:37 20:39 Temperature Pulse Rate 99 H 110 H 95 H Blood Pressure O2 Sat by Pulse 93 94 92 Oximetry O2 Sat by Pulse Oximetry [ Bilateral] 12/16/21 12/16/21 12/16/21 20:46 20:51 20:53 Temperature Pulse Rate 83 84 110 H Blood Pressure O2 Sat by Pulse 99 98 94 Oximetry O2 Sat by Pulse Oximetry [ Bilateral] 12/16/21 12/16/21 12/16/21 20:56 21:01 21:06 Temperature Pulse Rate 117 H 95 H 107 H Blood Pressure O2 Sat by Pulse 96 98 97 Oximetry O2 Sat by Pulse Oximetry [ Bilateral] 12/16/21 12/16/21 12/16/21 21:09 21:11 21:16 Temperature Pulse Rate 107 H 108 H 90 Blood Pressure O2 Sat by Pulse 94 98 97 Oximetry O2 Sat by Pulse Oximetry [ Bilateral] 12/16/21 12/16/21 12/16/21 21:21 21:26 21:31 Temperature Pulse Rate 119 H 86 95 H Blood Pressure O2 Sat by Pulse 100 99 100 Oximetry O2 Sat by Pulse Oximetry [ Bilateral] 12/16/21 12/16/21 12/16/21 21:36 22:49 22:54 Temperature Pulse Rate 113 H 91 H 103 H Blood Pressure O2 Sat by Pulse 100 98 97 Oximetry O2 Sat by Pulse Oximetry [ Bilateral] 12/16/21 12/16/21 12/16/21 22:58 22:59 23:04 Temperature Pulse Rate 81 115 H 106 H Blood Pressure O2 Sat by Pulse 92 96 92 Oximetry O2 Sat by Pulse Oximetry [ Bilateral] 12/16/21 12/16/21 12/16/21 23:09 23:14 23:16 Temperature Pulse Rate 94 H 88 81 Blood Pressure O2 Sat by Pulse 97 98 94 Oximetry O2 Sat by Pulse Oximetry [ Bilateral] 12/16/21 12/16/21 12/16/21 23:19 23:24 23:27 Temperature Pulse Rate 90 103 H 82 Blood Pressure O2 Sat by Pulse 97 98 93 Oximetry O2 Sat by Pulse Oximetry [ Bilateral] 12/16/21 12/16/21 12/16/21 23:29 23:34 23:39 Temperature Pulse Rate 105 H 66 82 Blood Pressure O2 Sat by Pulse 99 99 97 Oximetry O2 Sat by Pulse Oximetry [ Bilateral] 12/16/21 12/16/21 12/16/21 23:44 23:49 23:54 Temperature Pulse Rate 88 109 H 68 Blood Pressure O2 Sat by Pulse 99 98 82 L Oximetry O2 Sat by Pulse Oximetry [ Bilateral] 12/17/21 12/17/21 12/17/21 00:00 00:02 00:05 Temperature Pulse Rate 70 38 L Blood Pressure O2 Sat by Pulse 91 78 L 93 Oximetry O2 Sat by Pulse Oximetry [ Bilateral] 12/17/21 12/17/21 12/17/21 00:09 00:11 00:14 Temperature Pulse Rate 39 L 74 60 Blood Pressure O2 Sat by Pulse 71 L 73 L 59 L Oximetry O2 Sat by Pulse Oximetry [ Bilateral] 12/17/21 12/17/21 12/17/21 00:16 00:22 00:26 Temperature Pulse Rate 51 L 34 L 102 H Blood Pressure O2 Sat by Pulse 77 L 71 L 82 L Oximetry O2 Sat by Pulse Oximetry [ Bilateral] 12/17/21 12/17/21 12/17/21 00:27 00:50 01:09 Temperature Pulse Rate 58 L Blood Pressure O2 Sat by Pulse 77 L 46 L 74 L Oximetry O2 Sat by Pulse Oximetry [ Bilateral] 12/17/21 12/17/21 12/17/21 01:18 01:23 01:27 Temperature Pulse Rate 157 H Blood Pressure O2 Sat by Pulse 83 L 76 L 77 L Oximetry O2 Sat by Pulse Oximetry [ Bilateral] 12/17/21 12/17/21 12/17/21 01:28 01:33 01:40 Temperature Pulse Rate Blood Pressure O2 Sat by Pulse 76 L 79 L 77 L Oximetry O2 Sat by Pulse Oximetry [ Bilateral] 12/17/21 12/17/21 12/17/21 01:45 01:50 02:00 Temperature Pulse Rate 127 H Blood Pressure 126/79 O2 Sat by Pulse 68 L 75 L Oximetry O2 Sat by Pulse Oximetry [ Bilateral] 12/17/21 12/17/21 12/17/21 02:04 02:05 02:09 Temperature Pulse Rate 115 H 114 H 88 Blood Pressure 133/84 O2 Sat by Pulse 99 99 Oximetry O2 Sat by Pulse Oximetry [ Bilateral] 12/17/21 12/17/21 12/17/21 02:13 02:14 02:15 Temperature Pulse Rate 77 86 68 Blood Pressure 145/86 O2 Sat by Pulse 94 95 Oximetry O2 Sat by Pulse Oximetry [ Bilateral] 12/17/21 12/17/21 12/17/21 02:19 02:20 02:21 Temperature Pulse Rate 84 75 98 H Blood Pressure 137/92 O2 Sat by Pulse 97 94 Oximetry O2 Sat by Pulse Oximetry [ Bilateral] 12/17/21 12/17/21 12/17/21 02:24 02:26 02:29 Temperature Pulse Rate 89 88 90 Blood Pressure 160/81 O2 Sat by Pulse 94 97 Oximetry O2 Sat by Pulse Oximetry [ Bilateral] 12/17/21 12/17/21 12/17/21 02:32 02:34 02:36 Temperature Pulse Rate 83 100 H 68 Blood Pressure 150/76 O2 Sat by Pulse 93 99 Oximetry O2 Sat by Pulse Oximetry [ Bilateral] 12/17/21 12/17/21 12/17/21 02:39 02:41 02:44 Temperature Pulse Rate 95 H 77 106 H Blood Pressure 139/84 O2 Sat by Pulse 99 98 Oximetry O2 Sat by Pulse Oximetry [ Bilateral] 12/17/21 12/17/21 12/17/21 02:49 02:54 02:55 Temperature Pulse Rate 77 76 89 Blood Pressure O2 Sat by Pulse 97 97 94 Oximetry O2 Sat by Pulse Oximetry [ Bilateral] 12/17/21 12/17/21 12/17/21 02:59 03:01 03:04 Temperature Pulse Rate 95 H 98 H 81 Blood Pressure 124/78 O2 Sat by Pulse 100 98 Oximetry O2 Sat by Pulse Oximetry [ Bilateral] 12/17/21 12/17/21 12/17/21 03:09 03:14 03:16 Temperature Pulse Rate 100 H 103 H 107 H Blood Pressure 112/82 O2 Sat by Pulse 98 99 Oximetry O2 Sat by Pulse Oximetry [ Bilateral] - Exam Narrative Exam: Bloody show noted on blue pad. Cardiovascular: Regular rate Lungs: Normal air movement Abdomen: Present: normal appearance, soft Vulva: both: normal FHR: auscultation normal Uterine Contraction Monitor Mode: External Cervical Dilatation: 9.5 Cervical Effacement Percentage: 90 station: +1 Uterine Contraction Pattern: Regular Uterine Tone Measurement Phase: Resting Uterine Contraction Intensity: Moderate - Labs Labs: Abnormal Labs 12/16/21 00:13 Hgb 10.0 L Hct 29.8 L MCH 27 L RDW 16.2 H Laboratory Results - last 24 hr 12/16/21 09:59 SARS-CoV-2 (PCR) Negative
[2021-12-17] MEDS ORDERED: LIDOCAINE (2%) 20 MG/1 ML VIAL 20 ML MDV INFILTRATI ONE (04:04)
[2021-12-17] MEDS ORDERED: MINERAL OIL 30 ML ORAL LIQD ONE (04:04)
--- NOTE | 2021-12-17 04:35 | Procedure Note ---
OB Delivery Note - Delivery Date of Delivery: 12/17/21 Insulation Cutter: DENIA HANNON Estimated blood loss: other (700ml) - Vaginal Delivery presentation: vertex Delivery position: OA Intrapartum events: hemorrhage, other(please specify) ( tachycardia) Delivery induction: cervidil Delivery augmentation: rupture of membranes, pitocin Delivery monitor: external FHT, external uterine Route of delivery: Delivery placenta: spontaneous Delivery cord: 3 umbilical vessels, other (Compound presentation: umbilical cord and hand by 's head during delivery. ) Episiotomy: none Delivery laceration: other (Bilateral periuretheral abrasions noted. ) Anesthesia: intravenous, epidural Delivery comments: Pt with a large amount of bloody show before delivery. of viable female infant. Compound presentation noted: hand and umbilical cord by head at delivery. Infant to mother's abdomen for skin to skin. Cord cut and clamped after cessation of pulse. Spontaneous delivery of placenta, intact, appears to be complete but cord seems to be abnormally inserted. Will send to pathology. Brisk bleeding after delivery of placenta. Was not stopped with Pitocin. Methergine IM and Cytotec PO given with bleeding stopping after medication administration. Perineum and vaginal inspected, periurethral abrasion s noted, hemostatic, no repair needed. EBL 700ml. Apgars 8,9. Infant weight 6- 14. Instruments and sponges counted with RN X2 and correct X2. and mother left in stable condition in care of RN. - A at 1 minute: 8 at 5 minutes: 9 Infant Gender: Female ("Amarya", 6-14)
[2021-12-17] MEDS ORDERED: LANOLIN/ZINC/DIMETHICONE (LANSINOH) 7 GM TP PRN ×2 (06:31)
[2021-12-17] MEDS ORDERED: PROMETHAZINE 25 MG RECT SUPP PR PRN (06:31)
[2021-12-17] MEDS ORDERED: diphenhydrAMINE 25 MG CAP PO PRN (06:31)
[2021-12-17] MEDS ORDERED: WITCH HAZEL/ GLYCERIN PAD TP PRN (06:31)
[2021-12-17] MEDS ORDERED: OXYTOCIN DRIP 30 UNITS/500 ML BAG IV SCH (06:31)
[2021-12-17] MEDS ORDERED: MAGNESIUM HYDROXIDE (MOM) ORAL LIQD UDC PO PRN (06:31)
[2021-12-17] MEDS ORDERED: BENZOCAINE/MENTHOL 20/0.5% TOP SPRAY 56 GM TP PRN (06:31)
[2021-12-17] MEDS ORDERED: PROMETHAZINE 25 MG TAB PO PRN (06:31)
[2021-12-17] MEDS ORDERED: ONDANSETRON 4 MG/2 ML INJ IV PRN (06:31)
[2021-12-17] MEDS ORDERED: oxyCODONE /ACETAMINOPHEN 5-325MG TAB PO PRN (06:31)
[2021-12-17] MEDS ORDERED: ACETAMINOPHEN 500 MG TAB PO PRN (06:47)
[2021-12-17] MEDS: IBUPROFEN 800 MG TAB PO SCH (06:57)
[2021-12-17] MEDS: METHYLERGONOVINE 0.2 MG TABLET PO SCH ×3 (08:34→23:54)
[2021-12-17] MEDS: PRENATAL VIT27-FE FUMARATE-FOLIC ACID VIT TAB PO SCH (10:10)
[2021-12-17] MEDS: DOCUSATE SODIUM 100 MG CAP PO SCH ×2 (10:10→21:28)
--- NOTE | 2021-12-17 11:01 | Post Anesthesia Evaluation ---
- Post Anesthesia Evaluation Patient Participated: Yes Airway Patent: Yes Stable Respiratory Function: Yes Nausea/Vomiting: No Temp > 96.8F: Yes Pain Manageable: Yes Adequeate Hydration: Yes Anesthesia Complications: No Block Receding Appropriately: Yes Patient on Ventilator: No
[2021-12-17 16:03] LABS: Hematocrit 24.6 % (30.3-42.9); Hemoglobin 7.9 gm/dl (10.1-14.3)
[2021-12-17] MEDS: FERROUS SULFATE 325 MG TAB PO SCH (21:28)
[2021-12-18] MEDS: IBUPROFEN 800 MG TAB PO SCH ×2 (04:37→15:01)
[2021-12-18] MEDS ORDERED: TETANUS,DIPH,PERTUSS(ACELL) VACCINE 0.5 ML SYRINGE IM ONE (06:00)
[2021-12-18] MEDS: METHYLERGONOVINE 0.2 MG TABLET PO SCH (08:39)
[2021-12-18] MEDS: FERROUS SULFATE 325 MG TAB PO SCH ×2 (08:39→15:01)
--- NOTE | 2021-12-18 08:52 | Discharge Summary ---
Providers - Providers Date of Admission: 12/17/21 05:00 Date of discharge: 12/18/21 Attending physician: TIMOTHY JOHNSON Primary care physician: TIMOTHY JOHNSON Hospitalization Reason for admission: induction of labor Delivery: Episiotomy: none Laceration: other (Periurethral abrasions) Other procedures: none complications: none Discharge diagnosis: IUP at term delivered baby: female Pertinent studies: Pt denies feeling dizzy, lightheaded, short of breath, and chest pain. We discussed should any of these symptoms occur, she will need to return to the ER for evaluation. Pt expressed understanding. Hospital course: S: Pt doing well. Voiding, ambulating, passing flatus okay. O: VSS. Minimal bleeding noted. H/H 7.9/24.6, asymptomatic anemia of . A: 21 y.o. s/p . In good condition . P: Discharge home with instructions. Pt to take iron supplementation. Pt to schedule visit in the office in 4-6 weeks. Condition at discharge: Good Disposition: 01 HOME / SELF CARE / HOMELESS Plan - Discharge Medications Prescriptions: Docusate Sodium [Colace] 100 mg PO BID PRN #60 capsule PRN Reason: Constipation Ferrous Sulfate [Feosol 325 MG tab] 325 mg PO BID #60 tablet Ibuprofen [Motrin] 800 mg PO Q8HR PRN #30 tablet PRN Reason: Pain, Moderate (4-6) - Provider Discharge Summary Activity: routine, no sex for 6 weeks, no heavy lifting 4 weeks, no strenuous exercise Diet: routine Instructions: routine Additional instructions: [] Smoking cessation referral if applicable(refer to patient education folder for contact #) [] Refer to [facility] Booklet Call your doctor immediately for: * Fever > 100.5 * Heavy vaginal bleeding ( >1 pad per hour) * Severe persistent headache * Shortness of breath * Reddened, hot, painful area to leg or breast - Follow up plan Follow up: TIMOTHY JOHNSON MD [Primary Care Provider] - 7 Days (- Congratulations on the of your baby girl!! - Thank you for allowing us to take care of you! - Please schedule your visit in the office in 4-6 weeks. - Should you have any questions or concerns after discharge, please do not hesitate to call us at . )
[2021-12-18] MEDS: PRENATAL VIT27-FE FUMARATE-FOLIC ACID VIT TAB PO SCH (10:56)
[2021-12-18] MEDS: DOCUSATE SODIUM 100 MG CAP PO SCH (10:57)
[2021-12-18 13:36] VITALS: BP 114/71
== END 2021-12-18 17:55 | disposition home or self-care (01) | DRG 775 ==
LOC: TRG 20:47 → APU 20:49 → LD 12-16 03:23 → TRG 12-17 04:58 → LD 12-17 05:00 → OB 12-17 06:10
PROVIDERS: ADMIT Obstetrics & Gynecology; ATTEND Obstetrics & Gynecology
PROC: 10E0XZZ Delivery of Products of Conception, External Approach (ICD-10-PCS; principal; 2021-12-17)
PROC: 3E0R3BZ Introduction of Anesthetic Agent into Spinal Canal, Percutaneous Approach (ICD-10-PCS; 2021-12-17)
PROC: 00HU33Z Insertion of Infusion Device into Spinal Canal, Percutaneous Approach (ICD-10-PCS; 2021-12-17)
PROC: 3E0P7VZ Introduction of Hormone into Female Reproductive, Via Natural or Artificial Opening (ICD-10-PCS; 2021-12-17)
PROC: 3E0234Z Introduction of Serum, Toxoid and Vaccine into Muscle, Percutaneous Approach (ICD-10-PCS; 2021-12-18)
DX: O48.0 Post-term pregnancy (principal); Z3A.41 41 weeks gestation of pregnancy; Z20.822 Contact with and (suspected) exposure to COVID-19; Z37.0 Single live birth; Z23 Encounter for immunization; O99.52 Diseases of the respiratory system complicating childbirth; J45.909 Unspecified asthma, uncomplicated; O71.82 Other specified trauma to perineum and vulva; O99.02 Anemia complicating childbirth; Z91.018 Allergy to other foods; Z88.8 Allergy status to other drugs, medicaments and biological substances; O76 Abnormality in fetal heart rate and rhythm complicating labor and delivery
CPT/HCPCS: 36415; 59025; 59200; 85014; 85018; 85027; 86850; 86900; 86901; 88307; G0378; J3490; J0595; J2210; J7120; U0003